=== PATIENT | female | born 1955 | race Caucasian/White ===

== ENCOUNTER 2022-08-15 14:14 | Emergency (ER) | payer OTHER, SELFPAY ==
[2022-08-15 14:24] VITALS: BP 127/72; PULSE 79; RESP 18; TEMP 36.4; O2SAT 98; BMI 24.0
--- NOTE | 2022-08-15 16:05 | ED_ITS ---
HPI - General Adult General Time Seen by Provider: 16:05 Date Seen: 08/15/22 Chief complaint: Allergic Reaction Stated complaint: Swollen tongue Time Seen by Provider: 08/15/22 14:53 Source: patient Mode of arrival: ambulatory Limitations: no limitations History of Present Illness HPI narrative: Francoise is a 67-year-old female past medical history includes cow's intolerance, dairy allergies, irritable bowel syndrome, hyperlipidemia, depression presents to emergency department with with allergic reaction. Patient states that around 1:00 p.m. this afternoon she drank a can of Coke after poured it in a paper cup. She had some corn chips as well, she noticed some tongue swelling, she denied any dairy foods this morning, her thought there was more swelling in her neck, she was able to take a Zyrtec. She did not have any difficulty with breathing, she did not have any difficulty swallowing, she has not had anything like this in the past, when she ate a corn chips it was more painful, she does have a dental kenji the needs taking care of. No associated facial swelling. She has not had any fevers. Tongue swelling is improved since she has been tumor department. She denies any recent detergents, lotions or new foods. Related Data Home Medications Medication Instructions Recorded Confirmed rosuvastatin 10 mg tablet mg 08/15/22 sertraline 50 mg tablet mg 08/15/22 Previous Rx's Medication Instructions Recorded epinephrine 0.3 mg/0.3 mL 0.3 mg (0.3 mL) IM ONCE PRN 08/15/22 injection, auto-injector anaphylaxis #1 syringe prednisone 20 mg tablet 40 mg PO DAILY 2 days #4 tabs 08/15/22 Allergies Allergy/AdvReac Type Severity Reaction Status Date / Time latex Allergy Mild Rash Verified 05/29/22 15:52 Penicillin Allergy Severe hives and Uncoded 05/29/22 15:52 constipation Sulfa drugs Allergy Intermediate hives and Uncoded 05/29/22 15:52 constipation Lactose Intolerance AdvReac Unknown constipation Uncoded 05/29/22 15:52 per past medical record Review of Systems Status of ROS: Reports: 10 or more systems reviewed and unremarkable except as noted in History and below [facility] Medical History Asthma Right shoulder pain Surgical History History of tubal ligation (1986) Family History Maternal Grandfather Alcoholism Father Colon cancer Coronary artery disease Depression Diabetes Nonmelanoma skin cancer Mother Colon cancer Depression Nonmelanoma skin cancer Family/Other Depression Family/Other Depression Social History Narrative: Does not drink alcohol Does not have regular exercise regimen- but works physical job, involving lifting 50 lb loads , 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 No submandibular adenopathy, dental carry present last left lower molar, no abscess. No stridor Neck: Supple full range of motion Lungs:No stridor or wheezing present Heart: Normal sinus rhythm S1-S2 Abdomen: Soft nontender bowel sounds present Muscle skeletal: Moving upper lower extremities with no difficulty Neuro: Alert awake and oriented x3 Skin: No rashes Const: Vital Signs, click to edit/add: Vital Signs - 24 hr 08/15/22 14:24 Temperature 97.6 F Pulse Rate [Right Pulse Oximeter] 79 Respiratory Rate 18 Blood Pressure [Ri ght Upper Arm] 127/72 Pulse Oximetry 98 Oxygen Delivery Me thod Room Air Course Course Hospital Course: 4:00 PM: AIDET performed. Vitals stable, no airway compromise at this time, no respiratory distress, will give her her IM dose of Benadryl 50 and mg Decadron. Patient in agreement. Differential diagnosis include hypersensitivity reaction anaphylaxis, cellulitis, edema, infection as well as other etiologies. Reevaluation(s) Reevaluation #1: Patients symptoms have improved. vitals are stable. plan to discharge, short course of Prednisone 40 mg over 2 days in addition to OTC Benadryl. She was also given a EpiPen in case of hypersensitivity reaction or anaphylaxis in the future. reasons to return given, she should follow up with primary care provider in the next 7-10 days. Time: 17:33 Vital Signs Vital signs: Initial Vital Signs Temperature 97.6 F 08/15/22 14:24 Temperature Source Temporal Artery Scan 08/15/22 14:24 Pulse Rate 79 08/15/22 14:24 Respiratory Rate 18 08/15/22 14:24 Blood Pressure 127/72 08/15/22 14:24 Blood Pressure Mean 90 08/15/22 14:24 Blood Pressure Position Sitting 08/15/22 14:24 Pulse Oximetry 98 08/15/22 14:24 Oxygen Delivery Method 08/15/22 14:24 Vital Signs Temperature 97.6 F 08/15/22 14:24 Pulse Rate 79 08/15/22 14:24 Respiratory Rate 18 08/15/22 14:24 Blood Pressure 127/72 08/15/22 14:24 Pulse Oximetry 98 08/15/22 14:24 Oxygen Delivery Method 08/15/22 14:24 Temperature 97.6 F 08/15/22 14:24 Pulse Rate 79 08/15/22 14:24 Respiratory Rate 18 08/15/22 14:24 Blood Pressure 127/72 08/15/22 14:24 Pulse Oximetry 98 08/15/22 14:24 Oxygen Delivery Method 08/15/22 14:24 Discharge Plan Discharge Clinical Impression: Tongue swelling Patient Disposition: Home, Self-Care Condition: Improved Instructions: Allergies (ED) Additional Instructions: To follow up with primary care provider in the next 7-10 days, she should continue with Benadryl 25-50 mg every 4-6 hours, or course prednisone 40 mg given over the next 2 days, she also receive an EpiPen to have at home, return precautions given. Prescriptions: New prednisone 20 mg tablet 40 mg PO DAILY 2 Days Qty: 4 0RF epinephrine 0.3 mg/0.3 mL auto-injector 0.3 mg IM ONCE PRN (Reason: anaphylaxis) Qty: 1 0RF No Action sertraline 50 mg tablet rosuvastatin 10 mg tablet Follow Up/Referrals: Chelle Camacho MD [Primary Care Provider] - Stand Alone Forms: [facility] Info Instructions
[2022-08-15] MEDS: diphenhydrAMINE 50 MG/ML inj IM (16:15)
[2022-08-15] MEDS: dexAMETHasone 10 MG/ML inj IM (16:15)
[2022-08-15 16:30] VITALS: BP 138/83; PULSE 78; RESP 12; O2SAT 94
[2022-08-15 17:00] VITALS: BP 121/72; PULSE 80; RESP 18; O2SAT 99
[2022-08-15 17:30] VITALS: BP 123/73; PULSE 82; RESP 18; O2SAT 98
== END 2022-08-15 17:42 | disposition home or self-care (01) ==
PROVIDERS: Emergency Provider Student in an Organized Health Care Education/Training Program; PCP Family Medicine
DX: K14.0 Glossitis (principal)
CPT/HCPCS: 96372; 99283; J1100; J1200

== ENCOUNTER 2023-01-10 10:35 | Outpatient (CLI) | payer OTHER, SELFPAY ==
[2023-01-10 10:42] VITALS: BP 124/84; PULSE 75; RESP 16; O2SAT 95
[2023-01-10] MEDS: TETRACAINE 0.5% OPHTH 1 DROP EYE-BOTH ×3 (10:52→11:41)
[2023-01-10] MEDS: BRIMONIDINE TARTRATE 0.2% OPHTH 1 DROP EYE-BOTH ×2 (10:54→11:56)
--- NOTE | 2023-01-10 12:00 | W.PM.OPTPROC ---
Procedure Note Date of procedure: 01/10/23 Will [facility] bill your pro fee for this procedure?: Yes Procedure Description: SURGEON: Zeenat Cook MD PREOPERATIVE DIAGNOSIS: Posterior capsular opacity, right and left eye POSTOPERATIVE DIAGNOSIS: Posterior capsular opacity, right and left eye PROCEDURE: YAG laser capsulotomy, both eyes ANESTHESIA: Topical. ESTIMATED BLOOD LOSS: None PATHOLOGY SPECIMEN: None COMPLICATIONS: None INDICATIONS: See consult note for details. The risks, benefits and alternatives of the procedure were explained to the patient, who elected to proceed and signed informed consent to do so. PROCEDURE: The patient was brought to the pre-holding area where the right and left eyes were identified as the operative eyes. I placed my initials above the eyes. The following was given in both eyes: The patient received 2 sets of 1 drop of 0.5% tetracaine and 1 drop of 1% tropicamide. They also received 1 drop of 0.2% brimonidine. They received 1 drop of 0.5% tetracaine immediately prior to bringing them back for the procedure. The patient was then brought to the procedure room where the right and left eyes were again identified as the operative eyes. A YAG Jaden capsulotomy lens was placed on the right eye. The laser was administered using a total number of 24 shots with an energy of 2.4 mJ per shot for a total energy of 50 mJ. The patient tolerated the procedure well. A YAG Jaden capsulotomy lens was placed on the left eye. The laser was administered using a total number of 17 shots with an energy of 2.4 mJ per shot for a total energy of to 41 mJ. The patient tolerated the procedure well. DISPOSITION: The patient was taken back to the pre-holding area and given 1 drop of 0.2% brimonidine in both eyes. They were discharged to home in stable condition. The patient was instructed to call me or go to the emergency department with any sudden change, including dramatic loss of vision, severe pain in the eye or eyebrow region, nausea, or vomiting. The patient was instructed to use the 0.2% brimonidine 1 drop 2 times a day in both eyes for 1 week. The patient will follow up in the clinic in 1-2 weeks. Surgeon: Zeenat Cook MD
== END 2023-01-10 12:00 | disposition home or self-care (01) ==
LOC: OP CLINIC 10:36
PROVIDERS: PCP Family Medicine; Visit Provider Ophthalmology
DX: H26.9 Unspecified cataract (principal)
CPT/HCPCS: 66821; A9270

== ENCOUNTER 2023-05-09 13:12 | Outpatient (CLI) | payer OTHER, SELFPAY ==
--- NOTE | 2023-05-09 13:40 | CRLHL7_ITS ---
For Patients: As a result of the Century Cures Act, medical imaging exams and procedure reports are released immediately into your electronic medical record. You may view this report before your referring provider. If you have questions, please contact your health care provider. BILATERAL SCREENING MAMMOGRAM WITH COMPUTER-AIDED DETECTION TECHNIQUE: CC and MLO views were obtained. These mammographic images have been obtained using full-field digital technique. These mammographic images were interpreted with the benefit of computer-aided detection. COMPARISON FILM: 03/02/22, 05/18/20, 04/11/18. FINDINGS: There are scattered areas of fibroglandular density IMPRESSION: There is no radiographic evidence for malignancy. ASSESSMENT: BI-RADS Category 1: Negative RECOMMENDATION: Routine screening mammogram in 1 year. A lay language report of this examination will be provided to the patient. Hi Mcdaniel M.D. Diagnostic Radiologist [email or web address] Transcribed: 5:24 p.nelson adan/Dictated by: Hi Mcdaniel MD @ 05/10/2023 9:34:00 AM (Electronically Signed)
== END 2023-05-09 13:13 | disposition home or self-care (01) ==
PROVIDERS: PCP Family Medicine; Visit Provider Family Medicine
DX: Z12.31 Encounter for screening mammogram for malignant neoplasm of breast (principal)
CPT/HCPCS: 77067

== ENCOUNTER 2023-05-11 08:13 | Outpatient (CLI) | payer OTHER, SELFPAY ==
--- NOTE | 2023-05-11 10:02 | W.ANESCHARGE ---
Anesthesia Charges Start Date/Time Anesthesia Start Date: 05/11/23 Anesthesia Start Time: 09:27 Stop Date/Time Anesthesia Stop Date: 05/11/23 Anesthesia Stop Time: 09:58
== END 2023-05-11 08:14 | disposition home or self-care (01) ==
LOC: OP CLINIC 08:13
PROVIDERS: PCP Family Medicine; Visit Provider Internal Medicine
DX: Z12.11 Encounter for screening for malignant neoplasm of colon (principal); K63.5 Polyp of colon; K57.30 Diverticulosis of large intestine without perforation or abscess without bleeding; Z80.0 Family history of malignant neoplasm of digestive organs
CPT/HCPCS: 00811; 45380; 88305; J2704

== ENCOUNTER 2023-05-20 00:35 | Emergency (ER) | payer OTHER, SELFPAY ==
[2023-05-20 00:43] VITALS: BP 132/78; PULSE 68; RESP 18; TEMP 36.8; O2SAT 99; BMI 27.5
[2023-05-20] MEDS: diphenhydrAMINE 25 MG CAPSULE PO (01:12)
--- NOTE | 2023-05-20 01:17 | ED_ITS ---
HPI - General Adult General Chief complaint: Ear/Nose/Throat Problem Stated complaint: swollen tongue Time Seen by Provider: 05/20/23 00:37 Source: patient and family Mode of arrival: ambulatory Limitations: no limitations History of Present Illness HPI narrative: 68-year-old female presents the emergency department for evaluation of tenderness in what she perceives as swelling to the right side of her tongue. S he does not have a history of angioedema, does not use Jay inhibitors. She reports that she has had soreness for the past 3 days. [place] like she had a little swelling that vaguely started around 9:00 p.m.. No fevers, sweats or chills. She tried taking a decongestant which did not improve her symptoms and her typical nasal steroid spray. Did not try taking any antihistamines. She is having no difficulty breathing, notes no shortness of breath, no lip swelling, eyelid swelling facial swelling or hives. She has some dental work done about a week ago. Has had obvious aphthous ulcers on the right side of the tongue, right cheek for the past 10 days. Unknown exposure. Appetite has been a little decreased today but she is taking fluids without difficulty. No difficulty swallowing, no sore throat. Has been drinking lots of hot tea today and she did try saltwater gargles once with no significant improvement in her symptoms. Past medical history is notable for multiple environmental and medication allergies, all reviewed. Medications reviewed as well, denies any recent changes. Socially she is a nonsmoker with no pertinent travel. Does have grandchildren but they are not exhibiting signs of illness. ROS is notable for the HEENT symptoms as above, otherwise denies generalized, skin, other HEENT, allergic, GI or skin changes. Related Data Home Medications Medication Instructions Recorded Confirmed multivitamin 1 tab PO QDAY 08/18/22 04/17/23 calcium carbonate 600 mg calcium 600 mg PO .2x/week 04/17/23 04/17/23 (1,500 mg) tablet cholecalciferol (vitamin D3) 25 25 mcg PO QDAY 04/17/23 04/17/23 mcg (1,000 unit) capsule fluticasone propionate 50 1 spray intranasal QDAY 04/17/23 04/17/23 mcg/actuation nasal spray,suspension magnesium oxide 400 mg (241.3 mg 250 mg PO .2x/week 04/17/23 04/17/23 magnesium) tablet Previous Rx's Medication Instructions Recorded epinephrine 0.3 mg/0.3 mL 0.3 mg (0.3 mL) IM ONCE #2 ea 01/18/23 injection, auto-injector (EpiPen 2-Andreas) rosuvastatin 10 mg tablet 10 mg PO DAILY #90 tabs 04/17/23 sertraline 50 mg tablet 50 mg PO QDAY #90 tabs 04/17/23 peg 3350-electrolytes 236 240 ml PO ONCE #1 bottle 04/19/23 gram-22.74 gram-6.74 gram-5.86 gram solution (Golytely) peg 3350-electrolytes 236 480 ml PO ONCE #2 btls 04/19/23 gram-22.74 gram-6.74 gram-5.86 gram solution (Golytely) Allergies Allergy/AdvReac Type Severity Reaction Status Date / Time latex Allergy Mild Rash Verified 04/17/23 13:49 Penicillins Allergy Verified 04/17/23 13:49 Sulfa (Sulfonamide Allergy Verified 04/17/23 13:49 Antibiotics) gluten AdvReac Verified 05/11/23 09:49 Lactose Intolerance AdvReac Unknown constipation Uncoded 04/17/23 13:49 per past medical record [facility] Medical History Right shoulder pain ?M25.511 - Pain in right shoulder (ICD-10) Asthma ?J45.909 - Unspecified asthma, uncomplicated (ICD-10) Surgical History History of tubal ligation (1986) ?Z98.51 - Tubal ligation status (ICD-10) Family History Maternal Grandfather Alcoholism Father Colon cancer Coronary artery disease Depression Diabetes Nonmelanoma skin cancer Mother Colon cancer Depression Nonmelanoma skin cancer Family/Other Depression Family/Other Depression Social History Narrative: Does not drink alcohol Does not have regular exercise regimen- but works physical job, involving lifting 50 lb loads , 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, 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, lives in [place] Smoking Status: Never smoker Do you use any of these nicotine containing products: None Second hand tobacco smoke exposure: No How often do you have a drink containing alcohol: never AUDIT-C Alcohol total score: 0 Non-prescribed substance use: denies use Little interest or pleasure in doing things: not at all Feeling down, depressed, or hopeless: more than half the days Exam Const: Vital Signs, click to edit/add: Vital Signs - 24 hr 05/20/23 00:43 Temperature 98.2 F Pulse Rate [Right Pulse Oximeter] 68 Respiratory Rate 18 Blood Pressure [Le ft Upper Arm] 132/78 Pulse Oximetry 99 Oxygen Delivery Me thod Room Air Documenting provider has reviewed patient's vital signs: yes Common normals: no apparent distress General appearance: cooperative, comfortable and well kempt HENMT: Common normals: normocephalic and TM's normal bilaterally Head and scalp: normocephalic Face and sinus: normal facial exam; no facial edema Tympanic membrane: TM's normal bilaterally Throat: posterior oropharynx normal, tonsils normal and uvula midline Other: Typical appearing aphthous ulcer on right mid tongue, similar lesion on right buchal mucosa and 1 on the top of the palate. There is no swelling whatsoever to the tongue. No loss of rugae. Normal pharyngeal arches, normal lips, normal buccal mucosa besides the aphthous ulcers. Eye: Common normals: conjunctivae normal General eye: normal appearance of both eyes Conjunctiva: conjunctiva(e) normal Neck & C-Spine: Common normals: no lymphadenopathy Resp: Common normals: normal respiratory effort and clear to auscultation bilaterally Effort & inspection: able to speak in complete sentences Auscultation: clear to auscultation bilaterally Cardio: Common normals: regular rate, regular rhythm, S1 normal heart sound and S2 normal heart sound Rate: regular rate Rhythm: regular rhythm Heart sounds: S1 normal and S2 normal Neuro: Speech: speech normal Psych: Appearance: well kempt Attitude: calm Skin: Common normals: no rashes or lesions noted Narrative: No hives, no swelling General skin exam: no rashes or lesions noted Course Course Hospital Course: Counseled patient on findings, discussed viral etiology about this ulcers and have a tend to last about 3 weeks. There are no clinical signs of an allergic reaction, no dehydration. Sometimes antihistamines can reduce inflammation, she does not have access to these at home, the pharmacies are now closed for the night. Will administer Benadryl 25 mg p.o. x1. Counseled on Tylenol and ibuprofen for the mild discomfort and daily nondrowsy antihistamines like loratadine. Counseled on alarm symptoms that would warrant ED presentation, lip or tongue swelling, airway difficulty, shortness of breath, throat tightness. She verbalizes understanding and agreement. Counseled that she really should have access to Benadryl because of her history of allergy shots and allergic reactions in general. We discussed episodic use of this as well. She and her verbalized understanding and agreement. Vital Signs Vital signs: Initial Vital Signs Temperature 98.2 F 05/20/23 00:43 Temperature Source Temporal Artery Scan 05/20/23 00:43 Pulse Rate 68 05/20/23 00:43 Respiratory Rate 18 05/20/23 00:43 Blood Pressure 132/78 05/20/23 00:43 Blood Pressure Mean 96 05/20/23 00:43 Blood Pressure Position Sitting 05/20/23 00:43 Pulse Oximetry 99 05/20/23 00:43 Oxygen Delivery Method Room Air 05/20/23 00:43 Vital Signs Temperature 98.2 F 05/20/23 00:43 Pulse Rate 68 05/20/23 00:43 Respiratory Rate 18 05/20/23 00:43 Blood Pressure 132/78 05/20/23 00:43 Pulse Oximetry 99 05/20/23 00:43 Oxygen Delivery Method Room Air 05/20/23 00:43 Temperature 98.2 F 05/20/23 00:43 Pulse Rate 68 05/20/23 00:43 Respiratory Rate 18 05/20/23 00:43 Blood Pressure 132/78 05/20/23 00:43 Pulse Oximetry 99 05/20/23 00:43 Oxygen Delivery Method Room Air 05/20/23 00:43 Discharge Plan Discharge Clinical Impression: Aphthous ulcer of mouth Patient Disposition: Home w/ Parent or Adult Condition: Stable Instructions: Oral Mucositis (ED) Additional Instructions: As we discussed, there are no signs of airway compromise or allergic reaction. The small ulcers in her mouth are caused by a virus, this takes about 3-4 weeks to run its course. This means that you are about care home through the illness. This will not progress to a life-threatening condition but it is often mildly sore. It is okay to use Tylenol 1000 mg every 6 hours for discomfort and or ibuprofen 600 mg every 6 hours as needed for discomfort. These are the absolute best measures for pain control. Because of your allergy history, I would recommend that you take an antihistamine like loratadine which is old [id number] is Claritin or similar medications such as Zyrtec or Tess once daily for the next 5 days. If you are noticing a feeling of tongue swelling, take Benadryl 25 mg every 6 hours as needed. As we discussed, since you are someone that has allergies, you should always have access to Benadryl, I strongly encourage you to draft roller picker some at your next visit to the store. Remember that this is your first-line treatment against allergic reactions. It is common to have a mild sore throat, mild stomach discomfort from this virus also. There are no signs of a bacterial infection. Antibiotics do not help with this. Come to the emergency department if you have difficulty breathing, swelling of the lips or signs of true allergic reaction. You may resume all typical activities. Activity Level: No Restrictions Discharge Diet: Regular Prescriptions: No Action multivitamin Tablet 1 tab PO QDAY calcium carbonate 600 mg calcium (1,500 mg) tablet 600 mg PO .2x/week magnesium oxide 400 mg (241.3 mg magnesium) tablet 250 mg PO .2x/week epinephrine [EpiPen 2-Andreas] 0.3 mg/0.3 mL auto-injector 0.3 mg IM ONCE Qty: 2 0RF Rx Instructions: as a single dose; may repeat once fluticasone propionate 50 mcg/actuation spray,suspension 1 spray intranasal QDAY Patient Comments: [NO ORIGINAL SIG] cholecalciferol (vitamin D3) 25 mcg (1,000 unit) capsule 25 mcg PO QDAY sertraline 50 mg tablet 50 mg PO QDAY Qty: 90 3RF rosuvastatin 10 mg tablet 10 mg PO DAILY Qty: 90 3RF peg 3350-electrolytes [Golytely] 236-22.74-6.74 -5.86 gram recon soln 240 ml PO ONCE Qty: 1 0RF Rx Instructions: 4pm day prior to procedure. Drink 8oz glass every 15 minutes until 1/2 of solution is gone. 6 hours prior to procedure drink 8 oz glass every 15 minutes until remaining solution gone. peg 3350-electrolytes [Golytely] 236-22.74-6.74 -5.86 gram recon soln 480 ml PO ONCE Qty: 2 0RF Rx Instructions: 4pm day prior to procedure. Drink 8oz glass every 15 minutes until 1/2 of solution is gone. 6 hours prior to procedure drink 8 oz glass every 15 minutes until remaining solution gone. Follow Up/Referrals: Bo Ojeda MD [Primary Care Provider] - Stand Alone Forms: [facility] Info Instructions
[2023-05-20 01:30] VITALS: BP 132/78; PULSE 68; RESP 18; TEMP 36.8; O2SAT 99
[2023-05-20 01:54] VITALS: BP 132/78; PULSE 68; RESP 18; TEMP 36.8
== END 2023-05-20 01:55 | disposition home or self-care (01) ==
LOC: ED 01:19
PROVIDERS: Emergency Provider Family Medicine; PCP Family Medicine
DX: K12.0 Recurrent oral aphthae (principal)
CPT/HCPCS: 99282; 99283; A9270

== ENCOUNTER 2023-11-21 18:59 | Outpatient (CLI) | payer OTHER, SELFPAY ==
--- OUTSIDE RECORDS SUMMARY | 2023-11-21 19:04 | XMS_ITS | Clinical Summary ---
Author Name Unknown Organization [facility] Address [place], [place] [address] Care Team Providers Care Claims Specialist Name Role Phone Pcp, No Primary Care Provider Unavailabl e Allergies Active Allergy Reactions Criticality Noted Date Comments Lactose Constipation 12/16/2007 Penicillins Hives 12/16/2007 Sulfa (Sulfonamide Antibiotics) Hives,Constipation 12/16/2007 Medications Medication Sig Dispensed Refills Start Date End Date Status MELATONIN 3 MG TAB 1 tablet by mouth at bedtime for sleep 0 01/07/2008 Active CALCIUM ANTACID 1,000 MG CHEWABLE TAB 1 tablet by mouth once daily 0 01/07/2008 Active cholecalciferol (VITAMIN D) 1,000 unit capsule Take 1 capsule by mouth once daily. 0 07/13/2011 Active sertraline (ZOLOFT) 100 mg tabletIndications:Dep ression with anxiety Take 1 tablet by mouth once daily. 90 tablet 3 01/11/2014 Active ibuprofen (ADVIL; MOTRIN) 200 mg tablet Take 1,200 mg by mouth 4 times daily if needed. 0 Active rosuvastatin (CRESTOR) 10 mg tablet Take 1 Tablet by mouth once daily. 0 02/27/2023 Active multivitamin capsule Take 1 Capsule by mouth once daily. 0 04/16/2023 Active Active Problems Problem Noted Date Diagnosed Date Vitamin D deficiency 03/23/2011 Chronic rhinitis 01/16/2008 Nonspecific abnormal results of thyroid function study 01/15/2008 Resolved Problems Problem Noted Date Diagnosed Date Resolved Date Nonspecific abnormal results of thyroid function study 01/16/2008 01/16/2008 Iron deficiency anemia, unspecified 01/16/2008 03/23/2011 Encounters Date Type Department Care Team Description 11/16/2023 Telephone [facility] [address] [facility] [address] Raphael Harmon MD Questions (needs records of allergy shots) 11/15/2023 11:15 AM [employer] Nurse/Clinic Staff Only [facility] [address] [place] [place] [address] Immunization/Injecti on (ALLERGY INJECTIONS ) 11/15/2023 Travel 11/01/2023 10:45 AM [employer] Nurse/Clinic Staff Only [facility] [address] [facility] [address] Immunization/Injecti on (ALLERGY INJECTIONS ) 11/01/2023 Travel 10/25/2023 10:45 AM [employer] Nurse/Clinic Staff Only [facility] [address] [facility] [address] Immunization/Injecti on (ALLERGY SHOTS) 10/25/2023 Travel 10/18/2023 10:45 AM [employer] Nurse/Clinic Staff Only [facility] [address] [facility] [place] [address] Immunization/Injecti on (ALLERGY INJECTIONS ) 10/18/2023 Travel 10/11/2023 10:45 AM [employer] Nurse/Clinic Staff Only [facility] [address] [facility] [address] Immunization/Injecti on (ALLERGY INJECTIONS ) 10/11/2023 Travel 10/02/2023 10:45 AM [employer] Nurse/Clinic Staff Only [place] [address] [address] [facility] [place] [address] Immunization/Injecti on (ALLERGY SHOT) 10/02/2023 Travel 09/27/2023 10:45 AM [employer] Nurse/Clinic Staff Only [place] [address] [address] [facility] [place] [address] Immunization/Injecti on (ALLERGY SHOT) 09/27/2023 Travel 09/20/2023 10:45 AM [employer] Nurse/Clinic Staff Only [place] [address] [address] [facility] [address] Immunization/Injecti on (ALLERGY INJECTIONS ) 09/20/2023 Travel 09/13/2023 10:45 AM CDT Nurse/Clinic Staff Only [facility] [address] [facility] [address] Immunization/Injecti on (ALLERGY INJECTIONS ) 09/13/2023 Travel 09/06/2023 10:45 AM CDT Nurse/Clinic Staff Only [facility] [address] [place] [address] [address] Immunization/Injecti on (ALLERGY INJECTIONS ) 09/06/2023 Travel 08/27/2023 9:30 AM CDT Nurse/Clinic Staff Only [facility] [address] [facility] [address] Immunization/Injecti on (ALLERGY INJECTIONS ) 08/27/2023 Travel 08/23/2023 10:45 AM CDT Nurse/Clinic Staff Only [facility] [address] [facility] [address] Immunization/Injecti on (ALLERGY INJECTIONS ) 08/23/2023 Travel from Last 3 Months Immunizations Name Administration Dates Next Due Td (Age >=7 Years) 06/06/2007 Family History Medical History Relation Name Comments Psychiatric illness Daughter 2 Crystal depressi on Cancer-colon Father Santiago Bussert Diabetes Father Santiago Bussert Heart Disease Father Santiago Bussert Hypertension Father Santiago Bussert Other Father Santiago Bussert kidney disease Psychiatric illness Father Santiago Bussert depressi on Psychiatric illness Maternal Grandfather committed suicide Diabetes Maternal Grandmother Hypertension Mother Gregoria Bussert Psychiatric illness Mother Gregoriapavel Pedrozasert depressi on, anxiety Diabetes Paternal Grandfather Diabetes Sister 2 x4, Dasha Coffey, Nubia Mendenhall, Maru Penny, Carmen Self Psychiatric illness Son 2 Thomas depressi on Relation Name Status Comments Brother Alive x1 Daughter 1 Alive x2 Daughter 2 Crystal Father Santiago Yovanysert 2006 Maternal Grandfather Maternal Grandmother Mother Gregoria Bussert Alive Paternal Grandfather Paternal Grandmother Sister 1 Alive x6 Sister 2 Son 1 Alive x1 Son 2 Thomas Social History Tobacco Use Types Packs/Day Years Used Date Smoking Tobacco: Never Smokeless Tobacco: Never Tobacco Cessation:Counseling Given: Yes Alcohol Use Standard Drinks/Week Comments Not Asked 0 (1 standard drink = 0.6 oz pur e alcohol) Social Connections Answer Date Recorded Frequency of Communication with Friends and Fami ly Not on file 04/16/2023 Sex and Gender Information Value Date Recorded Sex Assigned at Not on file Gender Identity Not on file Sexual Orientation Not on file Obstetrics History Para Term AB IAB SAB Ectopic Multiple Livin g Live Births 3 3 3 Date Outcome GA Total Labor Labor/2nd/3rd Weight Sex Delivery Anes PTL Mila A1 A5 Name Cl in Para Para Para Last Filed Vital Signs Vital Sign Reading Time Taken Comments Blood Pressure 114/83 04/16/2023 2:17 PM CDT Pulse 70 04/16/2023 2:17 PM CDT Temperature 36.9 ??C (98.4 ??F) 08/24/2013 9:00 AM CD T Respiratory Rate 16 08/24/2013 9:00 AM CDT Oxygen Saturation 97% 04/16/2023 2:17 PM CDT Inhaled Oxygen Concentration - - Weight 74.4 kg (164 lb) 04/16/2023 2:17 PM CDT Height 163.2 cm (5' 4.25) 08/01/2011 8:26 AM CD T Body Mass Index - - Plan of Treatment Upcoming Encounters Date Type Department Care Team (Late st Contact Info) Description 11/29/2023 10:45 AM [employer] Nurse/Clinic Staff Only [facility] [address] [place], [place] [id number] Health Maintenance Due Date Last Done Comments Tdap 01/19/1968 Depression screening for age 12+ 1969 BMI (ht and wt on same day) for age 18+ 1975 Hepatitis C screening for ag e 18-79 1975 Zoster (shingles) series for age 50+ (1 of 2) 2007 Mammogram for age 45-75 08/01/2012 08/01/2011 Lipids for age 45-75 03/13/2016 03/13/2011 Tetanus booster 06/06/2017 06/06/2007 Colonoscopy through age 75 12/16/2017 12/16/2007, DEXA/DXA scan for age 65+ 2022 Medicare Wellness for age 65+ 2022 Pneumococcal series for age 65+ (1 of 1 - PCV) 2022 Influenza for age 65+ 07/13/2023 COVID-19 vaccine series Completed 08/21/20, 05/19/2022, 09/18/2021, Additional history exists Care Teams Claims Specialist Relationship Specialty Start Date End Date Pcp, No . PCP - General 04/16/23
--- OUTSIDE RECORDS SUMMARY | 2023-11-21 19:04 | XMS_ITS | Continuity of Care Document ---
Author Name Unknown Organization [facility] Address [address] [place] [address] Phone Care Team Providers Care Hog Ribber Name Role Phone Grace Cardona MD Unavailable Unavailable Allergies, Adverse Reactions, Alerts Substance Reaction Status Criticality sulfanilamide Active No Information Penicillins Active No Information Procedures Procedure Date Office/Outpatient Visit,[facility] 2013 Advance Directives Directive Yes / No Effective Date File Name No Information Encounters Encounter Description Practice Location Reason(s) For Visit Diagnoses Date Provider Providers Copied on Encounter [facility], [address], [place], [place], [id number], [place] tel:[phone] [facility] No Information 6 Mehbod Amir. [facility] [place], [address] [place] [address] [address], [place], [id number] , [place]. tel:[phone] Office/Outpat ient Visit,[facility] [place], [address] [place], [place] [address], [place], [address], [place] tel:[phone] [facility] Feb- 4 Mehbod Amir. [facility] [place], [address] [place] [address] [address], [place], [place], [id number] , [place]. tel:[phone] Referring Provider: Percy Kate, [facility] [address] [place] [address], [address]. tel:[phone] Family History Family Member Type Diagnosis Age At Onset Problem (finding) Problem (finding) Family history of Yes Problem (finding) Payers Payer name Insurance type Covered green party ID Authoriza tion(s) No Information Social History Type Description Quantity Date Captured Comments Sex Female Smoking Status No Information Chief Complaint And Reason For Visit No Information Reason For Referral Reason For Referral No Information History Of Present Illness Encounter Date Complaint History Of Prese nt Illness No Information Functional Status Date Functional Assessmen t No Information Instructions Date Instruction Additional Infor mation No Information Assessments Type Assessment Date No Information Patient Care Teams Name Effective Dates (start - stop) Status Members No Information
--- NOTE | 2023-11-27 14:48 | W.PM.SLEEP ---
Sleep Study Details Details Interpreting Provider: Yvette Date of Sleep Study: 11/21/23 Sleep Study Details: STUDY TYPE:? Home unattended ? BMI:? Not recorded ORDERING PROVIDER:Haider Lopez INDICATION:? Concerns about sleep apnea ? SLEEP SUMMARY:? Monitor time 438.3 minutes RESPIRATORY SUMMARY:? AHI 43, low oxygen 83 there were some central apneas with an index of 3.1 in the supine position 1.3 in the right lateral position. 7.6% of study oxygen less than 90% Snoring 0.3% PERIODIC LIMB MOVEMENTS OF SLEEP:? Not recorded during home study CARDIAC:? Range 49-85, mean 60 IMPRESSION:? Severe obstructive sleep apnea with significant desaturations and a few central apneas were noted RECOMMENDATION: In-lab titration is recommended. If patient prefers an auto set trial could be performed but close monitoring is recommended then.
== END 2023-11-21 19:00 | disposition home or self-care (01) ==
LOC: SLEEP 19:02
PROVIDERS: PCP Family Medicine; Visit Provider Family Medicine
DX: G47.33 Obstructive sleep apnea (adult) (pediatric) (principal)
CPT/HCPCS: 95806

== ENCOUNTER 2024-03-12 18:32 | Emergency (ER) | payer OTHER, SELFPAY ==
[2024-03-12 18:38] VITALS: BP 134/79; PULSE 74; RESP 16; TEMP 36.6; O2SAT 95; BMI 28.2
--- NOTE | 2024-03-12 19:04 | XR_ITS ---
Patient: DIAMANTE HUERTA Facility:?[facility] Patient ID:?[id number] Site Patient ID:?[id number] Site :?1955 Study:?XRay-Shoulder Left 3 VIEWS-03/12/2024 7:21:18 PM Ordering Physician:EMMIE Final Report: Indication: Follow-up. Technique: Left shoulder three views. Comparison: None. Findings: There is widening of the coracoclavicular distance. No visualized fracture. Degenerative changes of the acromioclavicular joint with apparent lateral downsloping of the acromion. No evidence of glenohumeral dislocation. No additional osseous abnormality. Soft tissues as imaged are unremarkable. Impression: Widening of the coracoclavicular distance may represent acute acromioclavicular joint separation in the appropriate clinical setting. No visualized fracture. Dictated by Shiv Ray MD @ 03/12/2024 7:31:23 PM Signed by:?Shiv Ray MD @03/12/2024 7:31:23 PM (Electronic Signature)
--- NOTE | 2024-03-12 19:08 | CT_ITS ---
Patient: DIAMANTE HUERTA Facility:?[facility] Patient ID:?[id number] Site Patient ID:?[id number] Site :?1955 Study:?CT-Head WITHOUT-03/12/2024 7:28:24 PM Ordering Physician:EMMIE Final Report: INDICATIONS: Fall. TECHNIQUE: CT head without contrast. COMPARISON: None FINDINGS: There is no mass effect or midline shift. No hydrocephalus. No CT evidence of acute hemorrhage or infarction. No abnormal extra-axial fluid collection. Bone windows show no acute or suspicious osseous abnormality. Paranasal sinuses and orbits as imaged are unremarkable. IMPRESSION: No acute intracranial abnormality. Dictated by Shiv Ray MD @ 03/12/2024 7:35:44 PM Please note that all CT scans at this facility use dose modulation, iterative reconstruction, and/or weight-based dosing when appropriate to reduce radiation dose to as low as reasonably achievable. Dictated by: Shiv Ray MD @ 03/12/2024 19:35:51 Signed by:?Shiv Ray MD @03/12/2024 7:35:51 PM (Electronic Signature)
--- NOTE | 2024-03-12 19:10 | CT_ITS ---
Patient: DIAMANTE HUERTA Facility:?[facility] Patient ID:?[id number] Site Patient ID:?[id number] Site :?1955 Study:?CT-Spine Cervical WITHOUT-03/12/2024 7:29:01 PM Ordering Physician:EMMIE Final Report: INDICATIONS: Fall. TECHNIQUE: CT cervical spine without contrast. COMPARISON: None. FINDINGS: No acute fracture, malalignment or significant bony central canal compromise. Mild to moderate multilevel degenerative changes. No additional osseous abnormality. Paraspinal soft tissues elsewhere as imaged and visualized lung apices are unremarkable. IMPRESSION: No acute cervical spine fracture. Dictated by Shiv Ray MD @ 03/12/2024 7:40:13 PM Please note that all CT scans at this facility use dose modulation, iterative reconstruction, and/or weight-based dosing when appropriate to reduce radiation dose to as low as reasonably achievable. Dictated by: Shiv Ray MD @ 03/12/2024 19:40:29 Signed by:?Shiv Ray MD @03/12/2024 7:40:29 PM (Electronic Signature)
--- NOTE | 2024-03-12 19:13 | ED.GENADULT ---
HPI - General Adult General Chief complaint: Shoulder Injury/Pain Stated complaint: Fell, injured L arm/back Time Seen by Provider: 03/12/24 19:07 History of Present Illness HPI narrative: Patient is a 69-year-old female presenting for left shoulder pain. She states she was working in her garden when she tripped on a bucket falling backwards landing on her left shoulder. She states she did hit her head but relatively soft please he states. Is not on any blood thinners. Denies any other injuries. Denies loss of consciousness. Denies numbness of her upper extremities weakness, headache, vision changes.. States she can not move her left shoulder secondary to pain. Related Data Home Medications Medication Instructions Recorded Confirmed multivitamin 1 tab PO QDAY 08/18/22 01/16/24 calcium carbonate 600 mg PO .2x/week 04/17/23 01/16/24 cholecalciferol (vitamin D3) 25 25 mcg PO QDAY 04/17/23 01/16/24 mcg (1,000 unit) capsule fluticasone propionate 50 1 spray intranasal QDAY 04/17/23 01/16/24 mcg/actuation nasal spray,suspension magnesium oxide 400 mg (241.3 mg 250 mg PO .2x/week 04/17/23 01/16/24 magnesium) tablet Previous Rx's Medication Instructions Recorded epinephrine 0.3 mg/0.3 mL 0.3 mg (0.3 mL) IM ONCE #2 ea 01/18/23 injection, auto-injector (EpiPen 2-Andreas) rosuvastatin 10 mg tablet 10 mg PO DAILY #90 tabs 04/17/23 sertraline 50 mg tablet 50 mg PO QDAY #90 tabs 04/17/23 rosuvastatin 10 mg tablet 10 mg PO QDAY #14 tabs 01/10/24 Allergies Allergy/AdvReac Type Severity Reaction Status Date / Time latex Allergy Mild Rash Verified 01/16/24 10:39 Penicillins Allergy Verified 01/16/24 10:39 Sulfa (Sulfonamide Allergy Verified 01/16/24 10:39 Antibiotics) gluten AdvReac Verified 01/16/24 10:39 Lactose Intolerance AdvReac Unknown constipation Uncoded 01/16/24 10:39 per past medical record Review of Systems Narrative: Pertinent systems reviewed and were negative unless stated in HPI PFSH PFSH Medical History Right shoulder pain ?M25.511 - Pain in right shoulder (ICD-10) Asthma ?J45.909 - Unspecified asthma, uncomplicated (ICD-10) Surgical History History of tubal ligation (1986) ?Z98.51 - Tubal ligation status (ICD-10) Family History Maternal Grandfather Alcoholism Father Colon cancer Coronary artery disease Depression Diabetes Nonmelanoma skin cancer Mother Colon cancer Depression Nonmelanoma skin cancer Family/Other Depression Family/Other Depression Social History Narrative: Does not drink alcohol Does not have regular exercise regimen- but works physical job, involving lifting 50 lb loads , 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, 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, lives in [place] Smoking Status: Never smoker Do you use any of these nicotine containing products: None Second hand tobacco smoke exposure: No How often do you have a drink containing alcohol: never How often do you have six or more drinks on one occasion: Never AUDIT-C Alcohol total score: 0 Non-prescribed substance use: denies use Little interest or pleasure in doing things: not at all Feeling down, depressed, or hopeless: more than half the days service: No Exam Narrative: Exam Narrative: Const: Well-nourished, Well-developed, in mild distress Eyes: PERRL, no conjunctival injection, and symmetrical lids HENT: Atraumatic external nose and ears. Moist mucous membranes. Neck: Symmetric, trachea midline, No thyromegaly. CVS: Radial Pulses +2 bilaterally GI: Nontender/Nondistended, No rebound or guarding. MSK:Extremities w/o deformity, tenderness to anterior left shoulder. Decreased active range of motion secondary to pain of left shoulder. Decreased passive range of motion but I am able to get her up to 50% flexion before she began developing pain. No cervical midline tenderness Skin: Warm, Dry. No rashes or lesions. Neuro: Normal Muscle tone, No focal neurological deficits. Psych: Awake, Alert, & Oriented x3. Appropriate mood and affect. Const: Vital Signs, click to edit/add: Vital Signs - 24 hr 03/12/24 18:38 Temperature 97.9 F Pulse Rate [Pulse Oximeter] 74 Respiratory Rate 16 Blood Pressure [Ri ght Upper Arm] 134/79 Pulse Oximetry 95 Oxygen Delivery Me thod Room Air Course Vital Signs Vital signs: Initial Vital Signs Temperature 97.9 F 03/12/24 18:38 Temperature Source Temporal Artery Scan 03/12/24 18:38 Pulse Rate 74 03/12/24 18:38 Pulse Rhythm Regular 03/12/24 18:38 Respiratory Rate 16 03/12/24 18:38 Blood Pressure 134/79 03/12/24 18:38 Blood Pressure Mean 97 03/12/24 18:38 Blood Pressure Position Sitting 03/12/24 18:38 Pulse Oximetry 95 03/12/24 18:38 Oxygen Delivery Method Room Air 03/12/24 18:38 Vital Signs Temperature 97.9 F 03/12/24 18:38 Pulse Rate 74 03/12/24 18:38 Respiratory Rate 16 03/12/24 18:38 Blood Pressure 134/79 03/12/24 18:38 Pulse Oximetry 95 03/12/24 18:38 Oxygen Delivery Method Room Air 03/12/24 18:38 Temperature 97.9 F 03/12/24 18:38 Pulse Rate 74 03/12/24 18:38 Respiratory Rate 16 03/12/24 18:38 Blood Pressure 134/79 03/12/24 18:38 Pulse Oximetry 95 03/12/24 18:38 Oxygen Delivery Method Room Air 03/12/24 18:38 Medical Decision Making MDM Narrative Medical decision making narrative: Patient is a 69-year-old female presenting for left shoulder pain. She has tenderness to the AC joint on exam. We will x-ray the left shoulder. She is neurovascular intact. Since she fell and hit her head were also scan her head and cervical spine. Not having any headache or cervical spine pain. CT is reviewed by myself and the radiologist showed no concerning abnormalities. X-ray of the shoulder shows what appears like a AC joint separation. This is consistent with her symptoms. Will place the patient in a sling and informed her to follow up with Orthopedics within the week. She is agreeable to this plan. Imaging Data Left shoulder x-ray: Attestation: I have reviewed the pertinent imaging results. Radiologist's impression: Widening of the coracoclavicular distance may represent acute acromioclavicular joint separation in the appropriate clinical setting. No visualized fracture. Dictated by Shiv Ray MD @ 03/12/2024 7:31:[address] scan head: Attestation: I have reviewed the pertinent imaging results. Radiologist's impression: No acute intracranial abnormality. Dictated by Shiv Ray MD @ 03/12/2024 7:35:44 PM Please note that all CT scans at this facility use dose modulation, iterative reconstruction, and/or weight-based dosing when appropriate to reduce radiation dose to as low as reasonably achievable. Dictated by: Shiv Ray MD @ 03/12/2024 19:35:51 CT scan cervical spine: Attestation: I have reviewed the pertinent imaging results. Radiologist's impression: No acute cervical spine fracture. Dictated by Shiv Ray MD @ 03/12/2024 7:40:13 PM Please note that all CT scans at this facility use dose modulation, iterative reconstruction, and/or weight-based dosing when appropriate to reduce radiation dose to as low as reasonably achievable. Dictated by: Shiv Ray MD @ 03/12/2024 19:40:29 Discharge Plan Discharge Clinical Impression: Acromioclavicular joint separation Qualifiers: Encounter type: initial encounter Laterality: left Qualified Code(s): S43.102A - Unspecified dislocation of left acromioclavicular joint, initial encounter Patient Disposition: Home, Self-Care Condition: Stable Instructions: Acromioclavicular Separation (ED) Additional Instructions: Where this sling at all times. Although you can take it off while your showering but be careful with that shoulder. Follow-up with your preferred orthopedic provider location within the next week. Take Tylenol and ibuprofen for pain. You can also ice the shoulder 3 times a day for 20 minutes as needed for pain. Return for new or worsening symptoms Prescriptions: No Action multivitamin Tablet 1 tab PO QDAY calcium carbonate 600 mg calcium (1,500 mg) tablet 600 mg PO .2x/week magnesium oxide 400 mg (241.3 mg magnesium) tablet 250 mg PO .2x/week epinephrine [EpiPen 2-Andreas] 0.3 mg/0.3 mL auto-injector 0.3 mg IM ONCE Qty: 2 0RF Rx Instructions: as a single dose; may repeat once fluticasone propionate 50 mcg/actuation spray,suspension 1 spray intranasal QDAY Patient Comments: [NO ORIGINAL SIG] cholecalciferol (vitamin D3) 25 mcg (1,000 unit) capsule 25 mcg PO QDAY sertraline 50 mg tablet 50 mg PO QDAY Qty: 90 3RF rosuvastatin 10 mg tablet 10 mg PO DAILY Qty: 90 3RF rosuvastatin 10 mg tablet 10 mg PO QDAY Qty: 14 0RF Follow Up/Referrals: Bo Ojeda MD [Primary Care Provider] - Stand Alone Forms: MyHealth Info Instructions
[2024-03-12 20:57] VITALS: BP 125/81; PULSE 85; RESP 16; TEMP 36.6; O2SAT 95
[2024-03-12 20:58] VITALS: BP 125/81; PULSE 85; RESP 16; TEMP 36.6
== END 2024-03-12 20:58 | disposition home or self-care (01) ==
PROVIDERS: Emergency Provider Student in an Organized Health Care Education/Training Program; PCP Family Medicine
DX: S43.102A Unspecified dislocation of left acromioclavicular joint, initial encounter (principal); W01.0XXA Fall on same level from slipping, tripping and stumbling without subsequent striking against object, initial encounter
CPT/HCPCS: 70450; 72125; 73030; 99282; 99283; 99284

== ENCOUNTER 2024-06-10 10:57 | Outpatient (CLI) | payer OTHER, SELFPAY ==
--- OUTSIDE RECORDS SUMMARY | 2024-06-10 11:01 | XMS_ITS | Continuity of Care Document ---
Author Organization [facility] Address [address] [place] [address] Phone Care Team Providers Care Ball Point Splitter Name Role Phone Dulce KRISHNAMURTHY, Grace Unavailable Unavailable Allergies, Adverse Reactions, Alerts Substance Reaction Status Criticality sulfanilamide Active No Information Penicillins Active No Information Procedures Procedure Date Office/Outpatient Visit,[facility] 2013 Advance Directives Directive Yes / No Effective Date File Name No Information Encounters Encounter Description Practice Location Reason(s) For Visit Diagnoses Date Provider Providers Copied on Encounter [facility], [address], [place], [place], [id number], [place] tel:[phone] [phone] [facility] No Information 6 Mehbod Amir. [facility], [address] [place] [address] [address], [place], [id number] , [place]. tel:[phone] Office/Outpat ient Visit,[facility] Z [facility], [address] [place], [place] [address], [place], [address], [place] tel:[phone] [facility] 4 Mehbod Amir. [facility], [address], [place], [place], [id number] , [place]. tel:[phone] Referring Provider: Percy Kate, [facility] [address] [place] [address], [address]. tel:[phone] Family History Family Member Type Diagnosis Age At Onset Problem (finding) Problem (finding) Family history of Yes Problem (finding) Payers Payer name Insurance type Covered constitution party ID Authoriza tion(s) No Information Social [...]
== END 2024-06-10 10:58 | disposition home or self-care (01) ==
PROVIDERS: PCP Nurse Practitioner Family; Visit Provider Nurse Practitioner Family
DX: Z00.00 Encounter for general adult medical examination without abnormal findings (principal); E78.5 Hyperlipidemia, unspecified; Z13.0 Encounter for screening for diseases of the blood and blood-forming organs and certain disorders involving the immune mechanism; Z13.228 Encounter for screening for other metabolic disorders
CPT/HCPCS: 80053; 80061; 85025

== ENCOUNTER 2024-08-07 13:34 | Outpatient (CLI) | payer OTHER, SELFPAY ==
--- OUTSIDE RECORDS SUMMARY | 2024-08-07 13:37 | XMS_ITS | Continuity of Care Document ---
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 Making Machine Supervisor Name Role Phone Dulce KRISHNAMURTHY, Grace Unavailable Unavailable Allergies, Adverse Reactions, Alerts Substance Reaction Status Criticality sulfanilamide Active No Information Penicillins Active No Information Procedures Procedure Date Office/Outpatient Visit,[facility] 2013 Advance Directives Directive Yes / No Effective Date File Name No Information Encounters Encounter Description Practice Location Reason(s) For Visit Diagnoses Date Provider Providers Copied on Encounter [facility], [address], [place], [place], [id number], [place] tel:[phone] [facility] No Information 6 Mehbod Amir. [facility], [address] [place] [address] [address], [place], [id number] , [place]. tel:[phone] Office/Outpat ient Visit,[facility] Z [facility], [address] [place], [place] [address], [place], [address], [place] tel:[phone] [facility] 4 Mehbod Amir. [facility], [address], [place], [place], [id number] , [place]. tel:[phone] Referring Provider: Percy Kate, [facility] [address] [place] [address], [address]. tel:[phone] Family History Family Member Type Diagnosis Age At Onset Problem (finding) Problem (finding) Family history of Yes Problem (finding) Payers Payer name Insurance type Covered democrat ID Authoriza tion(s) No Information Social History [...]
--- OUTSIDE RECORDS SUMMARY | 2024-08-07 13:37 | XMS_ITS | Clinical Summary ---
Author Organization [facility] Address [place], [place] [address] Care Team Providers Care Forest Economics Professor Name Role Phone Pcp, No Primary Care [...] 0 07/13/2011 Active sertraline (ZOLOFT) 100 mg tabletIndications :Depression with anxiety Take 1 tablet by mouth once daily. 90 tablet 3 01/11/2014 Active ibuprofen (ADVIL; MOTRIN) 200 mg tablet Take 1,200 mg by mouth 4 times daily if needed. Active rosuvastatin (CRESTOR) 10 mg tablet Take 1 Tablet by mouth once daily. 02/27/2023 Active multivitamin capsule Take 1 Capsule by mouth once daily. 0 04/16/2023 Active Magnesium 30 mg tablet Take by mouth. Active EPINEPHrine (EPIPEN) 0.3 mg/0.3 mL auto-injector Inject 0.3 mg intramuscular each time if needed for Allergic Reaction. 02/02/2023 Active EPINEPHrine (EpiPen) 0.3 mg/0.3 mL auto-injectorIndi cations:Allergic rhinitis, unspecified seasonality, unspecified trigger Inject 0.3 mg (1 Pen) intramuscular each time if needed for Allergic Reaction. 2 Each 3 01/21/2024 Active fluticasone (50 mcg per actuation) nasal solution (FLONASE)Indicati ons:Allergic rhinitis, unspecified seasonality, unspecified trigger Inhale 1 Evans in both nostrils once daily if needed for Rhinitis. 16 g 5 07/24/2024 Active fluticasone (50 mcg per actuation) nasal solution (FLONASE) Inhale 1 Evans to both nostrils once daily if needed for Rhinitis. 07/25/2023 Discontinue d(Reorder (E-cancel not sent)) Active Problems Problem Noted Date Diagnosed Date Vitamin D deficiency 03/23/2011 Chronic rhinitis 01/16/2008 Nonspecific abnormal results of thyroid function study 01/15/2008 Resolved Problems Problem Noted Date Diagnosed Date Resolved Date Nonspecific abnormal results of thyroid function study 01/16/2008 01/16/2008 Iron deficiency anemia, unspecified 01/16/2008 03/23/2011 Encounters Date Type Department Care Team Description 07/31/2024 10:45 AM CDT Nurse/Clinic Staff Only [facility] [address] [place] [address] Immunization/Inject ion (ALLERGY INJECTION ) 07/31/2024 Travel 07/21/2024 Refill [facility] [address] [place] [address] Raphael Harmon MD Refill Request (Fluticasone) 07/17/2024 10:45 AM CDT Nurse/Clinic Staff Only [facility] [address] [place] [place] [address] Immunization/Inject ion (ALLERGY INJECTION ) 07/17/2024 Travel 07/08/2024 Orders Only [facility] [address] [place] [address] Raphael Harmon MD Refill Request (New Serum allergy mix) 07/03/2024 10:45 AM CDT Nurse/Clinic Staff Only [facility] [address] [place] [address] Immunization/Inject ion (ALLERGY INJECTIONS ) 07/03/2024 Telephone [facility] [address] [place] [address] Raphael Harmon MD Refill Request (ALLERGY SERUM ORDERS ) 07/03/2024 Travel 06/19/2024 10:45 AM CDT Nurse/Clinic Staff Only [facility] [address] [facility] [address] Immunization/Inject ion (ALLERGY INJECTIONS ) 06/19/2024 Travel 06/05/2024 10:45 AM CDT Nurse/Clinic Staff Only [facility] [address] [facility] [address] Immunization/Inject ion (ALLERGY INJECTIONS ) 06/05/2024 Travel 05/22/2024 10:45 AM CDT Nurse/Clinic Staff Only [facility] [address] [facility] [address] Immunization/Inject ion (ALLERGY INJECTIONS ) 05/22/2024 Travel 05/08/2024 10:45 AM CDT Nurse/Clinic Staff Only [facility] [address] [facility] [address] Immunization/Inject ion (ALLERGY INJECTIONS ) 05/08/2024 Travel from Last 3 Months Immunizations Name [...] Hypertension Mother Gregoria Bussert Psychiatric illness Mother Gregoria Pedrozasert depressi on, anxiety Diabetes Paternal Grandfather Diabetes Sister 2 x4, Dasha Coffey, Nubia Mendenhall, Maru Penny, Carmen Self Psychiatric illness Son 2 Thomas depressi on Relation Name Status Comments Brother Alive x1 Daughter 1 Alive x2 Daughter 2 Crystal Father Santiago Bussert 2006 Maternal Grandfather Maternal Grandmother Mother Gregoria Bussert Alive Paternal Grandfather Paternal Grandmother Sister 1 Alive x6 Sister 2 Son 1 Alive x1 Son 2 Thomas Social History Tobacco Use Types Packs/Day Years Used Date Smoking Tobacco: Never Smokeless Tobacco: Never Tobacco Cessation:Counseling Given: Yes Alcohol Use Standard Drinks/Week Comments Not Currently 0 (1 standard drink = 0.6 oz [...] Outcome GA Total Labor Labor/2nd/3rd Weight Sex Type Anes PTL Mila A1 A5 Name Clin Para Para Para Last Filed Vital Signs Vital Sign Reading Time Taken Comments Blood Pressure 117/77 01/21/2024 9:42 AM CDT tow er Pulse 63 01/21/2024 9:42 AM CDT Temperature 36.7 ??C (98.1 ??F) 12/03/2023 7:44 AM CS T Respiratory Rate 16 08/24/2013 9:00 AM CDT Oxygen Saturation 98% 01/21/2024 9:42 AM CDT Inhaled Oxygen Concentration - - Weight 76.7 kg (169 lb) 01/21/2024 9:42 AM CDT Height 161.3 cm (5' 3.5) 12/03/2023 7:44 AM HOSPICE NURSE Body Mass Index 29.47 12/03/2023 7:44 AM HOSPICE NURSE Plan of Treatment Upcoming Encounters Date Type Department Care Team (Late st Contact Info) Description 08/14/2024 10:45 AM CDT Nurse/Clinic Staff Only [place] [address] [facility] [address] 08/28/2024 10:45 AM CDT Nurse/Clinic Staff Only [place] [address] [place] [address] 09/11/2024 10:45 AM CDT Nurse/Clinic Staff Only [place] [address] [place] [address] 09/25/2024 10:45 AM HOSPICE NURSE Nurse/Clinic Staff Only [address] [address] 10/13/2024 10:45 AM HOSPICE NURSE Nurse/Clinic Staff Only [address] [address] Health Maintenance Due Date Last Done Comments Tdap 01/19/1968 Depression screening for age 12+ 1969 Hepatitis C screening for ag e 18-79 1975 Zoster (shingles) series for age 50+ (1 of 2) 2007 Mammogram for age 45-75 08/01/2012 08/01/2011 Lipids for age 45-75 03/13/2016 03/13/2011 Tetanus booster 06/06/2017 06/06/2007 Colonoscopy through age 75 12/16/2017 12/16/2007, DEXA/DXA scan for age 65+ 2022 Medicare Wellness for age 65+ 2022 Pneumococcal series for age 65+ (1 of 1 - PCV) 2022 COVID-19 vaccine series (2023- season) 2024 08/21/2023, 05/19/2022, 09/18/2021, Additional history exists Influenza for age 65+ 07/13/2024 BMI (ht and wt on same day) for age 18+ 12/03/2024 12/03/2023 Procedures Procedure Name Priority Date/Time Associated Diagnosis Comments LIPID PANEL W REFLEX MEASURED LDL Routine 03/13/2011 8:41 AM CDT Screening SCAN-COLONOSCOPY 12/16/2007 12:0 0 AM HOSPICE NURSE from Last 3 Months or Most Recently Relevant to Health Maintenance Results * (ABNORMAL) LIPID PANEL W REFLEX MEASURED LDL (03/13/2011 8:41 AM CDT) CHOLESTEROL,TOTAL 214(H) 110 - 199 mg/dL [facility] TRIGLYCERIDES 219(H) <150 mg/dL [facility] HDL CHOLESTEROL 54 >40 mg/dL [facility] CHOL/HDL RATIO 3.96 <4.51 [facility] LDL CHOLESTEROL 116 <131 mg/dL [facility] PATIENT STATUS Fasting [facility] Blood specimen (specimen) BLOOD SPECIMEN / Unknown 03/13/2011 8:41 AM CDT 03/13/2011 8:21 AM CDT Khris Whiteside DO CHEMISTRY CHLOE [facility] [address] [facility] [place] [address] * SCAN-COLONOSCOPY (12/16/2007 12:00 AM HOSPICE NURSE) Scanner OTHER from Last 3 Months or Most Recently Relevant to Health Maintenance Care Teams Forest Economics Professor Relationship Specialty Start Date End Date Pcp, No . PCP - General 04/16/23
--- NOTE | 2024-08-07 14:00 | CRLHL7_ITS ---
For Patients: As a result of the Century Cures Act, medical imaging exams and procedure reports are released immediately into your electronic medical record. You may view this report before your referring provider. If you have questions, please contact your health care provider. BILATERAL SCREENING MAMMOGRAM WITH COMPUTER-AIDED DETECTION AND TOMOSYNTHESIS TECHNIQUE: CC and MLO views were obtained. These mammographic images have been obtained using full-field digital technique. These mammographic images were interpreted with the benefit of computer-aided detection. Breast Tomosynthesis was used in this interpretation. COMPARISON FILM: 05/09/23, 03/02/22, 05/18/20. FINDINGS: There are scattered areas of fibroglandular density. IMPRESSION: There is no radiographic evidence for malignancy. ASSESSMENT: BI-RADS Category 1: Negative RECOMMENDATION: Routine screening mammogram in 1 year. A lay language report of this examination will be provided to the patient. Hi Mcdaniel M.D. Diagnostic Radiologist [email or web address] SP/Dictated by: Hi Mcdaniel MD @ 08/15/2024 10:05:00 AM (Electronically Signed)
== END 2024-08-07 13:35 | disposition home or self-care (01) ==
LOC: MAMMO 13:35
PROVIDERS: PCP Nurse Practitioner Family; Visit Provider Nurse Practitioner Family
DX: Z12.31 Encounter for screening mammogram for malignant neoplasm of breast (principal)
CPT/HCPCS: 77063; 77067

== ENCOUNTER 2024-08-17 15:21 | Emergency (ER) | payer OTHER, SELFPAY ==
--- NOTE | 2024-08-17 15:28 | ED.GENADULT ---
HPI - General Adult General Date Seen: 08/17/24 Chief complaint: Animal Bite Stated complaint: Bee sting; lips swelling Time Seen by Provider: 08/17/24 15:28 History of Present Illness HPI narrative: This is a 69-year-old female accompanied to the ER today by her with concern for lower lip swelling after a bee sting. She has a history of seasonal allergies with 1 previous episode of anaphylaxis of years ago to seasonal allergies. She is currently doing allergy shots for that. She was having a bottle of beer this afternoon. When she went to take a drink of her beer a bee that was in the beer bottle stung her on the left side of her lower lip. The sting occurred just at the border where the skin turns to the mucosal surface on the inner surface of the left lower lip. Sting occurred about an hour prior to arrival. She took 4 Benadryl tablets at home and some ibuprofen because of lip swelling and pain. She feels like her lip is getting more swollen as the minutes of gone by. No other symptoms. No hives. No upper lip swelling. No swelling of her cheek or tongue. No facial swelling. notes she has a normal voice. She has No trouble breathing. No abdominal pain. No nausea or vomiting. No lightheadedness. She has no history of coronary artery disease or hypertension. No history of asthma. Related Data Home Medications ?Medication ?Instructions ?Recorded ?Confirmed multivitamin 1 tab PO QDAY 08/18/22 06/10/24 calcium carbonate 600 mg PO .2x/week 04/17/23 06/10/24 cholecalciferol (vitamin D3) 25 25 mcg PO QDAY 04/17/23 06/10/24 mcg (1,000 unit) capsule fluticasone propionate 50 1 spray intranasal QDAY 04/17/23 06/10/24 mcg/actuation nasal spray,suspension magnesium oxide 400 mg (241.3 mg 250 mg PO .2x/week 04/17/23 06/10/24 magnesium) tablet Previous Rx's ?Medication ?Instructions ?Recorded epinephrine 0.3 mg/0.3 mL 0.3 mg (0.3 mL) IM ONCE #2 ea 01/18/23 injection, auto-injector (EpiPen 2-Andreas) rosuvastatin 10 mg tablet 10 mg PO QDAY #90 tabs 08/06/24 sertraline 50 mg tablet 50 mg PO DAILY #90 tabs 08/06/24 Allergies Allergy/AdvReac Type Severity Reaction Status Date / Time latex Allergy Mild Rash Verified 06/10/24 10:22 Penicillins Allergy Verified 06/10/24 10:22 Sulfa (Sulfonamide Allergy Verified 06/10/24 10:22 Antibiotics) gluten AdvReac Verified 06/10/24 10:22 Lactose Intolerance AdvReac Unknown constipation Uncoded 06/10/24 10:22 per past medical record PFSH PFS Medical History (Updated 08/17/24 @ 16:45 by Saúl Amos MD) Asthma ?J45.909 - Unspecified asthma, uncomplicated (ICD-10) Surgical History History of tubal ligation (1986) ?Z98.51 - Tubal ligation status (ICD-10) Family History (Updated 06/10/24 @ 10:46 by Shari Lawson, COLLECTION SYSTEMS MODELER, SPECIAL EQUIPMENT TECHNICIAN) Maternal Grandfather Alcoholism Father Colon cancer Coronary artery disease Depression Diabetes Nonmelanoma skin cancer Mother Colon cancer Depression Nonmelanoma skin cancer Rheumatoid arthritis Family/Other Depression Family/Other Depression Social History (Updated 06/10/24 @ 10:35 by Lisa Mcpherson ~ [facility] [address], [facility] [address]) Narrative: Does not drink alcohol Does not have regular exercise regimen- but works physical job, involving lifting 50 lb loads , 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, 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, lives in [place] What is your current living situation?: I presently have a place to live Problems where you live: no known problems In the past 12 months, utilities in danger of being shut off: no In past 12 months, lack of transportation kept you from medical appts, meetings, work, or getting things needed for daily living: no In the past 12 mos, have been you worried that your food would run out before you had money to buy more?: never true In the past 12 mos, the food you bought just didn't last and you didn't have money to buy more?: never true Smoking Status: Never smoker Do you use any of these nicotine containing products: None Second hand tobacco smoke exposure: No How often do you have a drink containing alcohol: never How often do you have six or more drinks on one occasion: Never AUDIT-C Alcohol total score: 0 Non-prescribed substance use: denies use How often does anyone, including family, friends and others, physically hurt you: never How often does anyone, including family, friends and others, insult or talk down to you: rarely How often does anyone, including family, friends and others, threaten you with harm: never How often does anyone, including family, friends and others, scream or curse at you: rarely Little interest or pleasure in doing things: not at all Feeling down, depressed, or hopeless: not at all service: No Exam Narrative: Exam Narrative: Constitutional: Appears well-developed and well-nourished. Alert. Conversant. Non toxic. HENT: Head: Atraumatic. Nose: Nose normal. Mouth/Throat: Oral mucosa is clear and moist. no trismus. Pharynx normal. Tonsils symmetric. No tonsillar enlargement, erythema, or exudate. She has swelling of the left side of her lower lip in the area where the bee sting occurred. There is of very small umesh on the mucosal surface of the left side of her lower lip. There is no palpable or visible residual stinger. No vesicles. No purulent drainage. Gums and tongue are normal. No trismus. Phonation normal. Posterior or pharyngeal structures are normal. Airway widely patent. Eyes: Conjunctivae normal. EOM normal. Pupils equal, round, and reactive to light. No scleral icterus. Neck: Normal range of motion. Neck supple. No tracheal deviation present. Cardiovascular: Normal rate, regular rhythm. No gallop. No friction rub. No murmur heard. Symmetric radial artery pulses Pulmonary/Chest: Effort normal. No stridor. No respiratory distress. No wheezes. No rales. No rhonchi . No tenderness. Abdominal: Soft. No distension. No mass. No tenderness. No rebound. No guarding. Musculoskeletal: RUE: Normal range of motion. No tenderness. No deformity LUE: Normal range of motion. No tenderness. No deformity RLE: Normal range of motion. No edema. No tenderness. No deformity LLE: Normal range of motion. No edema. No tenderness. No deformity Lymph: No cervical adenopathy. Neurological: Alert and oriented to person, place, and time. Normal strength. CN II-VII intact. No sensory deficit. GCS eye subscore is 4. GCS verbal subscore is 5. GCS motor subscore is 6. Normal coordination Skin: Skin is warm and dry. No hives. No rash noted. No pallor. Normal capillary refill. Psychiatric: Normal mood. Normal affect. Const: Vital Signs, click to edit/add: Vital Signs - 24 hr 08/17/24 15:33 Temperature 98.2 F Pulse Rate [Pulse Oximeter] 74 Respiratory Rate 18 Blood Pressure [Ri ght Upper Arm] 129/79 Pulse Oximetry 95 Oxygen Delivery Me thod Room Air Course Course ED Course: Pleasant 69-year-old female presenting to the ER today with a bee sting on the left side of her lower lip. She has swelling and discomfort of the left-sided lower lip. She is concerned that she may be developing anaphylaxis with the lip swelling. However I think this is probably a local reaction and swelling because of the bee sting that occurred directly into that lower lip. No other swelling of her or pharyngeal structures. No hives. No bronchospasm. No hypotension or signs of anaphylaxis. She has already taken 100 mg of oral Benadryl and some ibuprofen prior to arrival. Will monitor here in the ER to see if there is any sign of progressive swelling or development of airway symptoms. If this occurs could need treatment with IM epi, as well as steroids and additional antihistamines. Reevaluation(s) Reevaluation #1: Recheck-stable. No worsening swelling. Reevaluation #2: Recheck -1649. Remains stable. No worsening swelling. She is comfortable discharging home with her . Vital Signs Vital signs: Initial Vital Signs Temperature 98.2 F 08/17/24 15:33 Temperature Source Temporal Artery Scan 08/17/24 15:33 Pulse Rate 74 08/17/24 15:33 Respiratory Rate 18 08/17/24 15:33 Blood Pressure 129/79 08/17/24 15:33 Blood Pressure Mean 95 08/17/24 15:33 Pulse Oximetry 95 08/17/24 15:33 Oxygen Delivery Method Room Air 08/17/24 15:33 Vital Signs Temperature 98.2 F 08/17/24 15:33 Pulse Rate 74 08/17/24 15:33 Respiratory Rate 18 08/17/24 15:33 Blood Pressure 129/79 08/17/24 15:33 Pulse Oximetry 95 08/17/24 15:33 Oxygen Delivery Method Room Air 08/17/24 15:33 Temperature 98.2 F 08/17/24 15:33 Pulse Rate 74 08/17/24 15:33 Respiratory Rate 18 08/17/24 15:33 Blood Pressure 129/79 08/17/24 15:33 Pulse Oximetry 95 08/17/24 15:33 Oxygen Delivery Method Room Air 08/17/24 15:33 Medical Decision Making MDM Narrative Medical decision making narrative: This patient presents for evaluation of left lower lip swelling. She was stung by a bee directly into her left lower lip about an hour prior to arrival. Signs and symptoms are consistent with a localized reaction to the bee sting. She is not having any other facial swelling, hives, or other systemic symptoms of allergic reaction. No airway involvement, bronchospasm, GI symptoms, hypotension, or other sign of anaphylaxis. She already took 100 mg of Benadryl and 600 mg of ibuprofen at home so we did not administer additional meds here. We observed here for an hour to watch for any signs of progressive swelling that might suggest she might develop an airway problem or any other signs of evolving allergic reaction or anaphylaxis. No progression of her swelling occurred. She does not require epinephrine, epi drip, intubation, or admission for airway monitoring. At this point I suspect this is not a true allergic reaction to the bee sting. Rather, I think this is probably a local swelling due to the bee sting. She already has an EpiPen that she can use at home if her symptoms progress. She will use ibuprofen 600 mg every 6 hours and Benadryl 25-50 mg every 6 hours as needed. Potential for evolving or developing allergic reaction was discussed. Return of anaphylactic symptoms were discussed with patient and they were instructed to inject epi-pen and call 911 should these symptoms occur. Given lack of serious systemic symptoms, lack of respiratory difficulty and no oral or pharyngeal swelling, would not admit at this time for anaphylaxis. There is no signs of anaphylactic shock. Discharge Plan Discharge Clinical Impression: Accidental bee sting Patient Disposition: Home, Self-Care Condition: Stable Instructions: Insect Bite or Sting (ED) Additional Instructions: As we discussed we suspect that your lip is swollen because of insect venom that the sting put directly into your lip. You can treat the swelling and pain with Benadryl 1-2 tablets every 6 hours as needed as well as ibuprofen 3 tablets every 6 hours as needed. You can also use ice for 15 minutes every 2-3 hours to help reduce the swelling. Right now there is no sign of any serious systemic with allergic reaction or anaphylaxis. If you develop swelling in other parts of your face, in your throat, or other parts of your body, trouble breathing, or have any concerns, use your EpiPen right away and come back to the ER immediately. Prescriptions: No Action multivitamin Tablet 1 tab PO QDAY calcium carbonate 600 mg calcium (1,500 mg) tablet 600 mg PO .2x/week magnesium oxide 400 mg (241.3 mg magnesium) tablet 250 mg PO .2x/week epinephrine [EpiPen 2-Andreas] 0.3 mg/0.3 mL auto-injector 0.3 mg IM ONCE Qty: 2 0RF Rx Instructions: as a single dose; may repeat once fluticasone propionate 50 mcg/actuation spray,suspension 1 spray intranasal QDAY Patient Comments: [NO ORIGINAL SIG] cholecalciferol (vitamin D3) 25 mcg (1,000 unit) capsule 25 mcg PO QDAY rosuvastatin 10 mg tablet 10 mg PO QDAY Qty: 90 3RF sertraline 50 mg tablet 50 mg PO DAILY Qty: 90 3RF Follow Up/Referrals: Shari Lawson, COLLECTION SYSTEMS MODELER, SPECIAL EQUIPMENT TECHNICIAN [Primary Care Provider] - Stand Alone Forms: [facility] Info Instructions
[2024-08-17 15:33] VITALS: BP 129/79; PULSE 74; RESP 18; TEMP 36.8; O2SAT 95; BMI 28.5
--- OUTSIDE RECORDS SUMMARY | 2024-08-17 15:58 | XMS_ITS | Clinical Summary ---
Author Organization [facility] Address [place], [place] [address] Care Team Providers Care Catalyst Manufacturing Operator Name Role Phone Pcp, No Primary Care [...] rhinitis, unspecified seasonality, unspecified trigger Inhale 1 Alma in both nostrils once daily if needed for Rhinitis. 16 g 5 07/24/2024 Active fluticasone (50 mcg per actuation) nasal solution (FLONASE) Inhale 1 [place] to both nostrils once daily if needed [...] Encounters Date Type Department Care Team Description 08/14/2024 10:45 AM CDT Nurse/Clinic Staff Only [address] [address] Immunization/Inject ion (ALLERGY INJECTION ) 08/14/2024 Travel 07/31/2024 10:45 AM CDT Nurse/Clinic Staff Only [address] [address] Immunization/Inject ion (ALLERGY INJECTION ) 07/31/2024 Travel 07/21/2024 Refill [facility] [address] [place] [address] Raphael Harmon MD Refill Request (Fluticasone) 07/17/2024 10:45 AM CDT Nurse/Clinic Staff Only [address] [address] Immunization/Inject ion (ALLERGY INJECTION ) 07/17/2024 Travel 07/08/2024 [facility] [address] [place] [address] Raphael Harmon MD Refill Request (New Serum allergy mix) 07/03/2024 10:45 AM CDT Nurse/Clinic Staff Only [address] [address] Immunization/Inject ion (ALLERGY INJECTIONS ) 07/03/2024 Telephone [facility] [address] [facility] [place] [address] Raphael Harmon MD Refill Request (ALLERGY SERUM ORDERS ) 07/03/2024 Travel 06/19/2024 10:45 AM CDT Nurse/Clinic Staff Only [facility] [address] [place] [address] Immunization/Inject ion (ALLERGY INJECTIONS ) 06/19/2024 Travel 06/05/2024 10:45 AM CDT Nurse/Clinic Staff Only [facility] [address] [place] [address] Immunization/Inject ion (ALLERGY INJECTIONS ) 06/05/2024 Travel 05/22/2024 10:45 AM CDT Nurse/Clinic Staff Only [facility] [address] [facility] [address] Immunization/Inject ion (ALLERGY INJECTIONS ) 05/22/2024 Travel from Last 3 Months Immunizations Name [...] 161.3 cm (5' 3.5) 12/03/2023 7:44 AM ACADEMIC SUPPORT COORDINATOR Body Mass Index 29.47 12/03/2023 7:44 AM ACADEMIC SUPPORT COORDINATOR Plan of Treatment Upcoming Encounters Date Type Department Care Team (Late st Contact Info) Description 08/28/2024 10:45 AM CDT Nurse/Clinic Staff Only [address] [address] 09/11/2024 10:45 AM CDT Nurse/Clinic Staff Only [address] [address] 09/25/2024 10:45 AM ACADEMIC SUPPORT COORDINATOR Nurse/Clinic Staff Only [address] [address] 10/13/2024 10:45 AM ACADEMIC SUPPORT COORDINATOR Nurse/Clinic Staff Only [address] [place] [address] Health Maintenance Due Date Last Done Comments [...] CDT Screening SCAN-COLONOSCOPY 12/16/2007 12:0 0 AM ACADEMIC SUPPORT COORDINATOR from Last 3 Months or Most Recently Relevant to Health Maintenance Results * (ABNORMAL) LIPID PANEL W REFLEX MEASURED LDL (03/13/2011 8:41 AM CDT) CHOLESTEROL,TOTAL 214(H) 110 - 199 mg/dL [facility] TRIGLYCERIDES 219(H) <150 mg/dL [facility] HDL CHOLESTEROL 54 >40 mg/dL [facility] CHOL/HDL RATIO 3.96 <4.51 [facility] LDL CHOLESTEROL 116 <131 mg/dL [facility] PATIENT STATUS Fasting [facility] Blood specimen (specimen) BLOOD SPECIMEN / Unknown 03/13/2011 8:41 AM CDT 03/13/2011 8:21 AM CDT Khris Whiteside DO CHEMISTRY [facility] [address] [place] [address] * SCAN-COLONOSCOPY (12/16/2007 12:00 AM ACADEMIC SUPPORT COORDINATOR) Scanner OTHER from Last 3 Months or Most Recently Relevant to Health Maintenance Care Teams Catalyst Manufacturing Operator Relationship Specialty Start Date End Date Pcp, No . PCP - General 04/16/23
--- OUTSIDE RECORDS SUMMARY | 2024-08-17 15:58 | XMS_ITS | Continuity of Care Document ---
Author Organization [facility] Address [address] [place] [address] Phone Care Team Providers Care Signal Maintenance Technician Name Role Phone Dulce KRISHNAMURTHY, Grace Unavailable Unavailable Allergies, Adverse Reactions, Alerts Substance Reaction Status Criticality sulfanilamide Active No Information Penicillins Active No Information Procedures Procedure Date Office/Outpatient Visit,[facility] 2013 Advance Directives Directive Yes / No Effective Date File Name No Information Encounters Encounter Description Practice Location Reason(s) For Visit Diagnoses Date Provider Providers Copied on Encounter [facility], [address], [place], [place], [id number], [place] tel:[phone] [facility] No Information 6 Mehbod Amir. [facility], [address] [place] [address] [address], [place], [id number] , [place]. tel:[phone] Office/Outpat ient Visit,[facility], [address] [place], [place] [address], [place], [address], [place] tel:[phone] [phone] 4 Mehbod Amir. [facility], [address], [place], [place], [id number] , [place]. tel:[phone] Referring Provider: Percy Kate, [facility] [address] [place] [address], [address]. tel:[phone] Family History Family Member Type Diagnosis Age At Onset Problem (finding) Problem (finding) Family history of Yes Problem (finding) Payers Payer name Insurance type Covered libertarian ID Authoriza tion(s) No Information Social History [...]
[2024-08-17 16:52] VITALS: BP 126/68; PULSE 66; RESP 16
== END 2024-08-17 16:53 | disposition home or self-care (01) ==
PROVIDERS: Emergency Provider Emergency Medicine; PCP Nurse Practitioner Family
DX: T63.441A Toxic effect of venom of bees, accidental (unintentional), initial encounter (principal); R22.0 Localized swelling, mass and lump, head
CPT/HCPCS: 99282; 99283

== ENCOUNTER 2024-09-22 15:01 | Emergency (ER) | payer OTHER, SELFPAY ==
[2024-09-22 15:05] VITALS: BP 109/74; PULSE 86; RESP 18; TEMP 36.8; O2SAT 97; BMI 28.3
--- NOTE | 2024-09-22 15:09 | CRLHL7_ITS ---
For Patients: As a result of the Century Cures Act, medical imaging exams and procedure reports are released immediately into your electronic medical record. You may view this report before your referring provider. If you have questions, please contact your health care provider. Indication: Trauma. Technique: Right ankle, 3 views. Comparison: January 06, 2021. Findings/impression: Trimalleolar fracture extending to the ankle mortise. There is significant soft tissue swelling surrounding the ankle. Mild degenerative changes noted throughout the visualized joints. Dictated by Mihai Hein MD @ 09/22/2024 3:47:18 PM (Electronically Signed)
--- NOTE | 2024-09-22 16:58 | ED.LOWEXIN ---
HPI - Extremity Injury (Lower) General Chief Complaint: Extremity Pain/Injury, Lower Stated Complaint: R ankle injury Time Seen by Provider: 09/22/24 16:50 History of Present Illness HPI Narrative: This 69-year-old female comes in with the right ankle injury that occurred a few hours prior to arrival. She was ambulating down some steps and misstepped on the last step and twisted her ankle. She has bruising and swelling of the right ankle and is not able to bear weight. She does not report any other injury. She did not have loss of consciousness. She last ate at noon about 5 hours ago. She is not on any anticoagulants. Related Data Home Medications ?Medication ?Instructions ?Recorded ?Confirmed multivitamin 1 tab PO QDAY 08/18/22 09/18/24 calcium carbonate 600 mg PO .2x/week 04/17/23 09/18/24 cholecalciferol (vitamin D3) 25 25 mcg PO QDAY 04/17/23 09/18/24 mcg (1,000 unit) capsule fluticasone propionate 50 1 spray intranasal QDAY 04/17/23 09/18/24 mcg/actuation nasal spray,suspension magnesium oxide 400 mg (241.3 mg 250 mg PO .2x/week 04/17/23 09/18/24 magnesium) tablet Previous Rx's ?Medication ?Instructions ?Recorded epinephrine 0.3 mg/0.3 mL 0.3 mg (0.3 mL) IM ONCE #2 ea 01/18/23 injection, auto-injector (EpiPen 2-Andreas) rosuvastatin 10 mg tablet 10 mg PO QDAY #90 tabs 08/06/24 sertraline 50 mg tablet 50 mg PO DAILY #90 tabs 08/06/24 triamcinolone acetonide 0.1 % 1 applic topical QDAY 7 days #60 mL 09/18/24 lotion Allergies Allergy/AdvReac Type Severity Reaction Status Date / Time latex Allergy Mild Rash Verified 09/18/24 14:10 lactose Allergy Verified 09/18/24 14:10 Penicillins Allergy Verified 09/18/24 14:10 Sulfa (Sulfonamide Allergy Verified 09/18/24 14:10 Antibiotics) gluten AdvReac Verified 09/18/24 14:10 Review of Systems Status of ROS: Reports: 10 or more systems reviewed and unremarkable except as noted in History and below Narrative: Constitutional: No fevers, no weight gain or loss. Eyes: No discharge. No vision changes. HENT: No congestion, no sore throat, no ear pain. Cardiovascular: No chest pain, no palpitations. Respiratory: No shortness of breath, no wheezes, no cough. Gastrointestinal: No abdominal pain, no vomiting, no diarrhea. Genitourinary: No dysuria, no hematuria. Musculoskeletal: Right ankle injury as described above. Skin: No rashes, no pruritis. Neurological: No dizziness, weakness, sensory change, speech change. Endo/Heme/Allergies: No bruising or bleeding. No polydipsia. Pysch: no suicidality, no anxiety, no insomnia. All other systems reviewed and are negative. [facility] Medical History (Updated 09/22/24 @ 17:54 by Ranjit Cleveland MD) Asthma ?J45.909 - Unspecified asthma, uncomplicated (ICD-10) Surgical History History of tubal ligation (1986) ?Z98.51 - Tubal ligation status (ICD-10) Family History (Updated 06/10/24 @ 10:46 by Shari Lawson, JAVA MOBILE DEVELOPER, MVA REACTOR OPERATOR) Maternal Grandfather Alcoholism Father Colon cancer Coronary artery disease Depression Diabetes Nonmelanoma skin cancer Mother Colon cancer Depression Nonmelanoma skin cancer Rheumatoid arthritis Family/Other Depression Family/Other Depression Social History (Updated 06/10/24 @ 10:35 by Lisa Mcpherson ~ [facility] Narrative: Does not drink alcohol Does not have regular exercise regimen- but works physical job, involving lifting 50 lb loads , 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, 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, lives in [place] What is your current living situation?: I presently have a place to live Problems where you live: no known problems In the past 12 months, utilities in danger of being shut off: no In the past 12 mos, have been you worried that your food would run out before you had money to buy more?: never true In the past 12 mos, the food you bought just didn't last and you didn't have money to buy more?: never true Smoking Status: Never smoker Do you use any of these nicotine containing products: None Second hand tobacco smoke exposure: No How often do you have a drink containing alcohol: never How often do you have six or more drinks on one occasion: Never AUDIT-C Alcohol total score: 0 Non-prescribed substance use: denies use How often does anyone, including family, friends and others, physically hurt you: never How often does anyone, including family, friends and others, insult or talk down to you: rarely How often does anyone, including family, friends and others, threaten you with harm: never How often does anyone, including family, friends and others, scream or curse at you: rarely service: No Health Related Social Needs: Other personal risk factors, not elsewhere classified (Z91.89) Exam Narrative: Exam Narrative: Constitutional: Well-developed, well-nourished, no acute distress. HEENT: Normocephalic, atraumatic. Neck: Normal range of motion. Nontender. Supple. Heart: Regular. No murmurs. Normal rate. Intact distal pulses. Lungs: Clear to auscultation. No chest discomfort. No wheezes, rhonchi, or rales. Abdomen: Normal bowel sounds. Nontender. No rebound tenderness. Genitalia: Deferred. Back: No midline tenderness. Normal range of motion. Extremities: Right ankle has bruising and swelling. Skin: Intact. No rash. Warm. No erythema or pallor. Neurologic: No altered sensation. No weakness. Alert and oriented. Psychiatric: No suicidality. No anxiety or depression. No insomnia. Nursing notes and vitals signs are reviewed. Const: Vital Signs, click to edit/add: Vital Signs - 24 hr 09/22/24 15:05 Temperature 98.2 F Pulse Rate [Pulse Oximeter] 86 Respiratory Rate 18 Blood Pressure [Le ft Upper Arm] 109/74 Pulse Oximetry 97 Oxygen Delivery Me thod Room Air Course Vital Signs Vital signs: Initial Vital Signs Temperature 98.2 F 09/22/24 15:05 Temperature Source Temporal Artery Scan 09/22/24 15:05 Pulse Rate 86 09/22/24 15:05 Pulse Rhythm Regular 09/22/24 15:05 Respiratory Rate 18 09/22/24 15:05 Blood Pressure 109/74 09/22/24 15:05 Blood Pressure Mean 85 09/22/24 15:05 Blood Pressure Position Sitting 09/22/24 15:05 Pulse Oximetry 97 09/22/24 15:05 Oxygen Delivery Method Room Air 09/22/24 15:05 Vital Signs Temperature 98.2 F 09/22/24 15:05 Pulse Rate 86 09/22/24 15:05 Respiratory Rate 18 09/22/24 15:05 Blood Pressure 109/74 09/22/24 15:05 Pulse Oximetry 97 09/22/24 15:05 Oxygen Delivery Method Room Air 09/22/24 15:05 Temperature 98.2 F 09/22/24 15:05 Pulse Rate 86 09/22/24 15:05 Respiratory Rate 18 09/22/24 15:05 Blood Pressure 109/74 09/22/24 15:05 Pulse Oximetry 97 09/22/24 15:05 Oxygen Delivery Method Room Air 09/22/24 15:05 MDM - Extremity Injury (Lower) MDM Narrative Medical decision making narrative: This patient comes in with an injury to her right ankle. X-ray images show evidence of a trimalleolar fracture. The ankle of course is unstable but does not appear to be dislocated or insignificant need of improved position. I did contact the orthopedic physician's research assistant professor director of pediatric rehabilitation and made arrangement for follow-up with orthopedic clinic. The patient was placed in a Wilton Humphries splint and I did provide a little lateral pressure over the medial malleolus to improve the alignment. The patient has crutches at home that she can use. She did receive a prescription for [place] from the [facility]. Imaging Data XR R Ankle: Radiologist's impression: Trimalleolar fracture extending to the ankle mortise. There is significant soft tissue swelling surrounding the ankle. Mild degenerative changes noted throughout the visualized joints. Discharge Plan Discharge Clinical Impression: Ankle fracture Additional Instructions: Wear splint and use crutches for ambulating. An appointment is arranged for orthopedic department. Call [phone] connect with that clinic if needed. Prescriptions: No Action multivitamin Tablet 1 tab PO QDAY calcium carbonate 600 mg calcium (1,500 mg) tablet 600 mg PO .2x/week magnesium oxide 400 mg (241.3 mg magnesium) tablet 250 mg PO .2x/week epinephrine [EpiPen 2-Andreas] 0.3 mg/0.3 mL auto-injector 0.3 mg IM ONCE Qty: 2 0RF Rx Instructions: as a single dose; may repeat once triamcinolone acetonide 0.1 % lotion 1 applic topical QDAY 7 Days Qty: 60 0RF Rx Instructions: 1-2 drops to ear daily for 7 days. fluticasone propionate 50 mcg/actuation spray,suspension 1 spray intranasal QDAY Patient Comments: [NO ORIGINAL SIG] cholecalciferol (vitamin D3) 25 mcg (1,000 unit) capsule 25 mcg PO QDAY rosuvastatin 10 mg tablet 10 mg PO QDAY Qty: 90 3RF sertraline 50 mg tablet 50 mg PO DAILY Qty: 90 3RF Follow Up/Referrals: Shari Lawson, JAVA MOBILE DEVELOPER, MVA REACTOR OPERATOR [Primary Care Provider] -
--- OUTSIDE RECORDS SUMMARY | 2024-09-22 17:06 | XMS_ITS | Continuity of Care Document ---
Author Organization [facility] Address [address] [place] [address] Phone Care Team Providers Care Clinical Lab Assistant Name Role Phone Dulce KRISHNAMURTHY, Grace Unavailable Unavailable Allergies, Adverse Reactions, Alerts Substance Reaction Status Criticality sulfanilamide Active No Information Penicillins Active No Information Procedures Procedure Date Office/Outpatient Visit,[facility] 2013 Advance Directives Directive Yes / No Effective Date File Name No Information Encounters Encounter Description Practice Location Reason(s) For Visit Diagnoses Date Provider Providers Copied on Encounter [facility], [address], [place], [place], [id number], [place] tel:[phone] 4825 [facility] No Information 6 Mehbod Amir. [facility], [address] [place] [address] [address], [place], [id number] , [place]. tel:[phone] Office/Outpat ient Visit,[facility] Z [facility], [address] [place], [place] [address], [place], [address], [place] tel:[phone] 4 Mehbod Amir. [facility], [address], [place], [place], [id number] , [place]. tel:[phone] Referring Provider: Percy Kate, [facility] [address] [place] [address], [address]. tel:[phone] Family History Family Member Type Diagnosis Age At Onset Problem (finding) Problem (finding) Family history of Yes Problem (finding) Payers Payer name Insurance type Covered alliance party ID Authoriza tion(s) No Information Social [...]
--- OUTSIDE RECORDS SUMMARY | 2024-09-22 17:06 | XMS_ITS | Clinical Summary ---
Author Organization [facility] Address [place], [place] [address] Care Team Providers Care Social Worker Assistant Name Role Phone Pcp, No Primary Care [...] 0 07/13/2011 Active sertraline (ZOLOFT) 100 mg tabletIndications: Depression with anxiety Take 1 tablet by mouth [...] 02/02/2023 Active EPINEPHrine (EpiPen) 0.3 mg/0.3 mL auto-injectorIndic ations:Allergic rhinitis, unspecified seasonality, unspecified trigger Inject 0.3 mg (1 Pen) intramuscular each time if needed for Allergic Reaction. 2 Each 3 01/21/2024 Active fluticasone (50 mcg per actuation) nasal solution (FLONASE)Indicatio ns:Allergic rhinitis, unspecified seasonality, unspecified trigger Inhale 1 [place] in both nostrils once daily if needed for Rhinitis. 16 g 5 07/24/2024 Active Active Problems Problem Noted Date Diagnosed Date Vitamin D deficiency 03/23/2011 Chronic rhinitis 01/16/2008 Nonspecific abnormal results of thyroid function study 01/15/2008 Resolved Problems Problem Noted Date Diagnosed Date Resolved Date Nonspecific abnormal results of thyroid function study 01/16/2008 01/16/2008 Iron deficiency anemia, unspecified 01/16/2008 03/23/2011 Encounters Date Type Department Care Team Description 09/11/2024 10:45 AM CDT Nurse/Clinic Staff Only [address] [place] [address] Immunization/Inject ion (ALLERGY INJECTION ) 09/11/2024 Travel 08/28/2024 10:45 AM CDT Nurse/Clinic Staff Only [address] [address] Immunization/Inject ion (ALLERGY INJECTION) 08/28/2024 Travel 08/14/2024 10:45 AM CDT Nurse/Clinic Staff Only [address] [address] Immunization/Inject ion (ALLERGY INJECTION ) 08/14/2024 Travel 07/31/2024 10:45 AM CDT Nurse/Clinic Staff Only [address] [address] Immunization/Inject ion (ALLERGY INJECTION ) 07/31/2024 Travel 07/21/[address] [address] Raphael Harmon MD Refill Request (Fluticasone) 07/17/2024 10:45 AM CDT Nurse/Clinic Staff Only [address] [address] Immunization/Inject ion (ALLERGY INJECTION ) 07/17/2024 Travel 07/08/2024 Orders Only [facility] [address] [place] [address] Raphael Harmon MD Refill Request (New Serum allergy mix) 07/03/2024 10:45 AM CDT Nurse/Clinic Staff Only [facility] [address] [facility] [place] [address] Immunization/Inject ion (ALLERGY INJECTIONS ) 07/03/2024 Telephone [facility] [address] [place] [address] Raphael Harmon MD Refill Request (ALLERGY SERUM ORDERS ) 07/03/2024 Travel from Last 3 Months Immunizations Name Administration Dates Next Due Td (Age >=7 Years) 06/06/2007 Family History Medical History Relation Name Comments Psychiatric illness Daughter 2 Crystal depressi on Cancer-colon Father Santiago Pedrozasert Diabetes Father Santiago Bussert Heart Disease Father Santiago Bussert Hypertension Father Santiago Pedrozasert Other Father Santiago Pedrozasert kidney disease Psychiatric illness Father Santiago Pedrozasert depressi on Psychiatric illness Maternal Grandfather committed suicide Diabetes Maternal Grandmother Hypertension Mother Gregoria Pedrozasert Psychiatric illness Mother Gregoria Pedrozasert depressi on, anxiety Diabetes Paternal Grandfather Diabetes Sister 2 x4, Dasha Baron rt Alexx, Nubia Mendenhall, Maru Penny, Carmen Self Psychiatric illness Son 2 Thomas depressi on Relation Name Status Comments Brother Alive x1 Daughter 1 Alive x2 Daughter 2 Crystal Father Santiago Watt 2006 Maternal Grandfather Maternal Grandmother Mother Gregoria Watt Alive Paternal Grandfather Paternal Grandmother Sister 1 [...] 161.3 cm (5' 3.5) 12/03/2023 7:44 AM HOUSEKEEPER HOME Body Mass Index 29.47 12/03/2023 7:44 AM HOUSEKEEPER HOME Plan of Treatment Upcoming Encounters Date Type Department Care Team (Late st Contact Info) Description 09/25/2024 10:45 AM HOUSEKEEPER HOME Nurse/Clinic Staff Only [facility] [address] [place] [address] 10/13/2024 10:45 AM HOUSEKEEPER HOME Nurse/Clinic Staff Only [facility] [address] [facility] [place] [address] Health Maintenance Due Date Last Done Comments [...] 1 - PCV) 2022 COVID-19 vaccine series ( - season) 2024 08/21/2023, 05/19/2022, 09/18/2021, Additional history exists Influenza for age 65+ 07/13/2024 BMI (ht and wt on same day) for age 18+ 12/03/2024 12/03/2023 Procedures Procedure Name Priority Date/Time Associated Diagnosis Comments LIPID PANEL W REFLEX MEASURED LDL Routine 03/13/2011 8:41 AM CDT Screening SCAN-COLONOSCOPY 12/16/2007 12:0 0 AM HOUSEKEEPER HOME from Last 3 Months or Most Recently Relevant to Health Maintenance Results * (ABNORMAL) LIPID PANEL W REFLEX MEASURED LDL (03/13/2011 8:41 AM CDT) CHOLESTEROL,TOTAL 214(H) 110 - 199 mg/dL [facility] TRIGLYCERIDES 219(H) <150 mg/dL [facility] HDL CHOLESTEROL 54 >40 mg/dL [facility] CHOL/HDL RATIO 3.96 <4.51 [facility] LDL CHOLESTEROL 116 <131 mg/dL [facility] PATIENT STATUS Fasting [facility] Blood specimen (specimen) BLOOD SPECIMEN / Unknown 03/13/2011 8:41 AM CDT 03/13/2011 8:21 AM CDT Khris Whiteside DO CHEMISTRY [facility] [address] [place] [address] * SCAN-COLONOSCOPY (12/16/2007 12:00 AM HOUSEKEEPER HOME) Scanner OTHER from Last 3 Months or Most Recently Relevant to Health Maintenance Care Teams Social Worker Assistant Relationship Specialty Start Date End Date Pcp, No . PCP - General 04/16/23
[2024-09-22 18:14] VITALS: BP 109/74; PULSE 86; RESP 18; TEMP 36.8
== END 2024-09-22 18:15 | disposition home or self-care (01) ==
LOC: ED 17:03
PROVIDERS: Emergency Provider Emergency Medicine Emergency Medical Services; PCP Nurse Practitioner Family; Visit Provider Emergency Medicine Emergency Medical Services
DX: S82.854A Nondisplaced trimalleolar fracture of right lower leg, initial encounter for closed fracture (principal); W10.9XXA Fall (on) (from) unspecified stairs and steps, initial encounter
CPT/HCPCS: 29515; 73610; 99283; 99284

== ENCOUNTER 2024-09-23 15:16 | Outpatient (CLI) | payer OTHER, SELFPAY ==
--- OUTSIDE RECORDS SUMMARY | 2024-09-23 15:19 | XMS_ITS | Clinical Summary ---
Author Organization [facility] Address [place], [place] [address] Care Team Providers Care Wallpaper Installer Name Role Phone Pcp, No Primary Care [...] rhinitis, unspecified seasonality, unspecified trigger Inhale 1 [place] in both nostrils once daily if needed [...] 09/11/2024 10:45 AM CDT Nurse/Clinic Staff [place] [address] [place] [address] Immunization/Inject ion (ALLERGY INJECTION ) 09/11/2024 Travel 08/28/2024 10:45 AM CDT Nurse/Clinic Staff Only [address] [address] Immunization/Inject ion (ALLERGY INJECTION) 08/28/2024 Travel 08/14/2024 10:45 AM CDT Nurse/Clinic Staff Only [address] [address] Immunization/Inject ion (ALLERGY INJECTION ) 08/14/2024 Travel 07/31/2024 10:45 AM CDT Nurse/Clinic Staff Only [address] [address] Immunization/Inject ion (ALLERGY INJECTION ) 07/31/2024 Travel 07/21/[address] [address] Raphael Harmon MD Refill Request (Fluticasone) 07/17/2024 10:45 AM CDT Nurse/Clinic Staff Only [address] [address] Immunization/Inject ion (ALLERGY INJECTION ) 07/17/2024 Travel 07/08/2024 Orders Only [facility] [address] [place] [address] Rpahael Harmon MD Refill Request (New Serum allergy mix) 07/03/2024 10:45 AM CDT Nurse/Clinic Staff Only [facility] [address] [facility] [place] [address] Immunization/Inject ion (ALLERGY INJECTIONS ) 07/03/2024 Telephone [facility] [address] [place] [address] [address] Raphael Harmon MD Refill Request (ALLERGY SERUM [...] 161.3 cm (5' 3.5) 12/03/2023 7:44 AM DEVELOPER ANALYST Body Mass Index 29.47 12/03/2023 7:44 AM DEVELOPER ANALYST Plan of Treatment Upcoming Encounters Date Type Department Care Team (Late st Contact Info) Description 09/25/2024 10:45 AM DEVELOPER ANALYST Nurse/Clinic Staff Only [facility] [address] [place] [address] 10/13/2024 10:45 AM DEVELOPER ANALYST Nurse/Clinic Staff Only [facility] [address] [facility] [place] [address] Health Maintenance Due Date Last Done Comments [...] CDT Screening SCAN-COLONOSCOPY 12/16/2007 12:0 0 AM DEVELOPER ANALYST from Last 3 Months or Most Recently Relevant to Health Maintenance Results * (ABNORMAL) LIPID PANEL W REFLEX MEASURED LDL (03/13/2011 8:41 AM CDT) CHOLESTEROL,TOTAL 214(H) 110 - 199 mg/dL [facility] TRIGLYCERIDES 219(H) <150 mg/dL [facility] HDL CHOLESTEROL 54 >40 mg/dL [facility] CHOL/HDL RATIO 3.96 <4.51 [facility] LDL CHOLESTEROL 116 <131 mg/dL [facility] PATIENT STATUS Fasting [facility] Blood specimen (specimen) BLOOD SPECIMEN / Unknown 03/13/2011 8:41 AM CDT 03/13/2011 8:21 AM CDT Khris Whiteside DO CHEMISTRY [facility] [address] [place] [address] * SCAN-COLONOSCOPY (12/16/2007 12:00 AM DEVELOPER ANALYST) Scanner OTHER from Last 3 Months or Most Recently Relevant to Health Maintenance Care Teams Wallpaper Installer Relationship Specialty Start Date End Date Pcp, No . PCP - General 04/16/23
--- OUTSIDE RECORDS SUMMARY | 2024-09-23 15:19 | XMS_ITS | Continuity of Care Document ---
Author Organization [facility] Address [address] [place] [address] Phone Care Team Providers Care Circulation Assistant Name Role Phone Dulce KRISHNAMURTHY, Grace Unavailable Unavailable Allergies, Adverse Reactions, Alerts Substance Reaction Status Criticality sulfanilamide Active No Information Penicillins Active No Information Procedures Procedure Date Office/Outpatient Visit,[facility] 2013 Advance Directives Directive Yes / No Effective Date File Name No Information Encounters Encounter Description Practice Location Reason(s) For Visit Diagnoses Date Provider Providers Copied on Encounter [facility], [address], [place], [place], [id number], [place] tel:[phone] [facility] No Information 6 Mehbod Amir. [facility], [address] [place] [address] [address], [place], [address] , [place]. tel:[phone] Office/Outpat ient Visit,[facility] Z [facility], [address] [place], [place] [address], [place], [address], [place] tel:[phone] 4 Mehbod Amir. [facility], [address], [place], [place], [address] , [place]. tel:[phone] Referring Provider: Percy Kate, [facility] [address] [place] [address], [address]. tel:[phone] Family History Family Member Type Diagnosis Age [...]
== END 2024-09-23 15:17 | disposition home or self-care (01) ==
PROVIDERS: PCP Nurse Practitioner Family; Visit Provider Nurse Practitioner Family
DX: Z01.818 Encounter for other preprocedural examination (principal)
CPT/HCPCS: 73700; 80048; 85025

== ENCOUNTER 2024-09-26 07:08 | Day surgery (SDC) | payer OTHER, SELFPAY ==
[2024-09-26] VITALS (16 sets, daily range): BP systolic 111–138; BP diastolic 71–91; PULSE 60–71; RESP 14–16; TEMP 36.2–36.3; O2SAT 93–96; BMI 28.3
--- OUTSIDE RECORDS SUMMARY | 2024-09-26 07:10 | XMS_ITS | Continuity of Care Document ---
Author Organization [facility] Address [address] [place] [address] Phone Care Team Providers Care Marketing Coordinator Name Role Phone Dulce KRISHNAMURTHY, Grace Unavailable Unavailable Allergies, Adverse Reactions, Alerts Substance Reaction Status Criticality sulfanilamide Active No Information Penicillins Active No Information Procedures Procedure Date Office/Outpatient Visit,[facility] 2013 Advance Directives Directive Yes / No Effective Date File Name No Information Encounters Encounter Description Practice Location Reason(s) For Visit Diagnoses Date Provider Providers Copied on Encounter [facility], [address], [place], [place], [id number], [place] tel:[phone] 7298 [facility] No Information 6 Mehbod Amir. [facility], [address] [place] [address] [address], [place], [id number] , [place]. tel:[phone] Office/Outpat ient Visit,[facility] Z [facility], [address] [place], [place] [address], [place], [address], [place] tel:[phone] [facility] 4 Mehbod Amir. [facility], [address], [place], [place], [id number] , [place]. tel:[phone] Referring Provider: Percy Kate, [facility] [address] [place] [address], [address]. tel:[phone] Family History Family Member Type Diagnosis Age [...]
--- OUTSIDE RECORDS SUMMARY | 2024-09-26 07:10 | XMS_ITS | Clinical Summary ---
Author Organization [facility] Address [place], [place] [address] Care Team Providers Care Plant Operator Control Room Operator Name Role Phone Pcp, No Primary [...] rhinitis, unspecified seasonality, unspecified trigger Inhale 1 [place] in both nostrils once daily if needed [...] 09/11/2024 10:45 AM CDT Nurse/Clinic Staff Only [address] [place] [address] Immunization/Inject ion (ALLERGY INJECTION ) 09/11/2024 Travel 08/28/2024 10:45 AM CDT Nurse/Clinic Staff Only [address] [address] Immunization/Inject ion (ALLERGY INJECTION) 08/28/2024 Travel 08/14/2024 10:45 AM CDT Nurse/Clinic Staff Only [address] [address] Immunization/Inject ion (ALLERGY INJECTION ) 08/14/2024 Travel 07/31/2024 10:45 AM CDT Nurse/Clinic Staff Only [address] [address] Immunization/Inject ion (ALLERGY INJECTION ) 07/31/2024 Travel 07/21/[address] [address] Raphael Harmon MD Refill Request (Fluticasone) 07/17/2024 10:45 AM CDT Nurse/Clinic Staff Only [address] [address] Immunization/Inject ion (ALLERGY INJECTION ) 07/17/2024 Travel 07/08/2024 [place] [facility] [place] [address] [place] [address] Raphael Harmon MD Refill Request (New Serum allergy mix) 07/03/2024 10:45 AM CDT Nurse/Clinic Staff Only [facility] [address] [facility] [address] Immunization/Inject ion (ALLERGY INJECTIONS ) 07/03/2024 Telephone [facility] [address] [place] [address] [address] Raphael Harmon MD Refill Request (ALLERGY SERUM [...] 161.3 cm (5' 3.5) 12/03/2023 7:44 AM SCOWMAN Body Mass Index 29.47 12/03/2023 7:44 AM SCOWMAN Plan of Treatment Upcoming Encounters Date Type Department Care Team (Late st Contact Info) Description 10/13/2024 10:45 AM SCOWMAN Nurse/Clinic Staff Only [facility] [address] [place] [address] Health Maintenance Due Date Last Done Comments [...] - PCV) 2022 COVID-19 vaccine series ( season) 2024 08/21/2023, 05/19/2022, 09/18/2021, Additional history exists Influenza for age 65+ 07/13/2024 BMI (ht and wt on same day) for age 18+ 12/03/2024 12/03/2023 Procedures Procedure Name Priority Date/Time Associated Diagnosis Comments LIPID PANEL W REFLEX MEASURED LDL Routine 03/13/2011 8:41 AM CDT Screening SCAN-COLONOSCOPY 12/16/2007 12:0 0 AM SCOWMAN from Last 3 Months or Most Recently Relevant to Health Maintenance Results * (ABNORMAL) LIPID PANEL W REFLEX MEASURED LDL (03/13/2011 8:41 AM CDT) CHOLESTEROL,TOTAL 214(H) 110 - 199 mg/dL [facility] TRIGLYCERIDES 219(H) <150 mg/dL [facility] HDL CHOLESTEROL 54 >40 mg/dL [facility] CHOL/HDL RATIO 3.96 <4.51 [facility] LDL CHOLESTEROL 116 <131 mg/dL [facility] PATIENT STATUS Fasting [facility] Blood specimen (specimen) BLOOD SPECIMEN / Unknown 03/13/2011 8:41 AM CDT 03/13/2011 8:21 AM CDT Khris Whiteside DO CHEMISTRY [facility] [address] [place] [address] * SCAN-COLONOSCOPY (12/16/2007 12:00 AM SCOWMAN) Scanner OTHER from Last 3 Months or Most Recently Relevant to Health Maintenance Care Teams Plant Operator Control Room Operator Relationship Specialty Start Date End Date Pcp, No . PCP - General 04/16/23
[2024-09-26] MEDS: fentaNYL 100 MCG/2 ML inj IVP (07:57)
[2024-09-26] MEDS: MIDAZOLAM HCL 1 MG/ML inj IVP (07:57)
[2024-09-26] MEDS: SODIUM CHLORIDE 0.9 % (FLUSH) 10 ML SYRINGE IVF (07:59)
--- NOTE | 2024-09-26 08:00 | SUR.PREOP ---
TIME?OUT:?0756 PT/Wanda Chadwick RN/Dr. Prosper MDA?VERIFICATION?OF?SURGICAL?SITE right ankle,?PROCEDURE,?AND?CONSENT OBTAINED?PRIOR?TO?INVASIVE?PROCEDURE.
--- NOTE | 2024-09-26 08:17 | P.NB_ITS ---
Nerve Block Nerve Block Time Seen by Provider: 08:00 Date Seen: 09/26/24 Type of block requested by surgeon for post-operative analgesia: popliteal Side: right Time out performed: Yes Verification of patient name: Yes Verification of date of : Yes Site marking: site marked Name of person performing procedure: Prosper Continuous monitoring Was continuous monitoring of O2 sat, B/P, child monitor, recorded every 15 minutes?: Yes Procedure Checklist: sterile prep, needles and gloves Ultrasound guided. Images saved: Yes Medications given in 5ml increments after negative aspiration: Marcaine %: 0.5 mL: 20 Needle gauge: 20 Patient tolerated procedure well: Yes Additional comments: Needle noted adjacent to nerve Block Charges Block Charge (with Pro Fee): Sciatic Nerve Use of Ultrasound Machine for Block: Yes- US Guidance/pain block
--- NOTE | 2024-09-26 08:17 | P.NB_ITS ---
Nerve Block Nerve Block Time Seen by Provider: 08:00 Date Seen: 09/26/24 Type of block requested by surgeon for post-operative analgesia: adductor canal Side: right Time out performed: Yes Verification of patient name: Yes Verification of date of : Yes Site marking: site marked Name of person performing procedure: Prosper Continuous monitoring Was continuous monitoring of O2 sat, B/P, animal nutrition consultant, recorded every 15 minutes?: Yes Procedure Checklist: sterile prep, needles and gloves Ultrasound guided. Images saved: Yes Medications given in 5ml increments after negative aspiration: Marcaine %: 0.5 mL: 15 Needle gauge: 20 Patient tolerated procedure well: Yes Block Charges Block Charge (with Pro Fee): Femoral Nerve Use of Ultrasound Machine for Block: Yes- US Guidance/pain block
--- NOTE | 2024-09-26 08:18 | W.ANESCHARGE ---
Anesthesia Charges Start Date/Time Anesthesia Start Date: 09/26/24 Anesthesia Start Time: 08:34 Stop Date/Time Anesthesia Stop Date: 09/26/24 Anesthesia Stop Time: 11:40
--- NOTE | 2024-09-26 08:18 | W.PM.H&PU ---
History & Physical Update History & Physical Update H&P Reviewed and patient assessed: No changes noted
--- NOTE | 2024-09-26 08:20 | P.ORPRC_ITS ---
Procedure Note Date of procedure: 09/26/24 Procedure: PREOPERATIVE DIAGNOSES: 1. Right trimalleolar ankle fracture, closed, displaced POSTOPERATIVE DIAGNOSES: 1. Right trimalleolar ankle fracture, closed, displaced NAME OF OPERATION: 1. Right ankle fracture open reduction internal fixation SURGEON: Milo Becerra MD CONTINUOUS IMPROVEMENT DIRECTOR: Adeola Muller P.A.-C.; An executive assistant to general counsel was critical for this case to aide in patient positioning, leg manipulation, tissue retraction, closure, and splinting. ANESTHESIA: Spinal plus regional nerve blocks (adductor and popliteal). EBL: 15 mL IMPLANTS: Arthrex 4-hole distal fibular locking plate with 3.0 mm distal locking screws and 3.5mm proximal locking and nonlocking screws for lateral malleolus fixation; two 4.0 mm Arthrex partially threaded cancellous screws for medial malleolar fixation. TOURNIQUET: 98 minutes at 250 mmHg INDICATIONS: The patient is a pleasant 69-year-old female who an injury to her right ankle earlier this week after missing a step and twisting her ankle. Workup included x-rays, which revealed an unstable, displaced trimalleolar ankle fracture. Given the unstable nature of this injury, surgery was recommended to improve alignment and stabilize the ankle. Prior to surgery, the risks and benefits of the procedure were discussed with the patient, all questions were answered, and informed consent was obtained. FINDINGS: Closed, displaced, short oblique, mildly comminuted Sanders B distal fibula fracture; displaced transverse medial malleolus fracture; displaced, comminuted posterior malleolus fracture. After surgical stabilization of the medial and lateral malleolus fractures, the posterior malleolus fracture was anatomically reduced. External rotation stress x-rays revealed firm intact syndesmosis. PROCEDURE: Patient seen preoperatively and operative site was marked. Regional nerve blocks were performed by anesthesia staff. The patient was then brought to the operating room and spinal anesthesia was administered by anesthesia staff. She was then placed in supine position on the OR table. A tourniquet was placed on the patient's right thigh and right lower extremity was prepped and draped in usual sterile fashion. She was given 1 g IV Ancef preoperatively for prophylaxis. A surgical time-out was performed confirming patient identity, surgical site, and surgical procedure. The operative extremity was exsanguinated with an Esmarch, and the tourniquet inflated to 250 mmHg. A longitudinal incision was made along the posterior border of the distal fibula. Incision was carried through the skin and subcutaneous tissues, while protecting any crossing neurologic structures. The fracture was encountered, and cleared of interposed periosteum and fracture hematoma. Fracture site was then thoroughly irrigated with normal saline. The fracture was reduced and temporarily held with a reduction clamp. Fluoroscopic images were obtained which confirmed anatomic reduction of the distal fibula. A 4 hole distal fibula locking plate was then selected and the fixed to the distal fibula with BB tacks. Plate was then secured proximally with a single 3.5 mm nonlocking cortical screw. Plate was then fixed distally with 3.0 mm locking screws. Two additional 3.5 mm locking screws were then placed proximally. Following C-arm confirmation of appropriate plate position, and screw length, attention was turned to the fixation of the medial malleolus fracture. A longitudinal incision was made overlying the medial malleolar fracture. Blunt dissection was utilized to dissect through the subcutaneous tissues to allow us to protect the crossing neurovascular structures. The fracture was identified and cleared of interposed periosteum and fracture hematoma. A small arthrotomy was made to allow for visualization of the fracture at the articular surface. The fracture was reduced and held with a pointed reduction clamp. Two guide pins for the 4-0 cannulated screws were then drilled in a retrograde fashion across the fracture. Fluoroscopic imaging confirmed anatomic reduction of the fracture and good placement of the pins. The pins were then overdrilled, and partially-threaded 4.0 mm cannulated screws with washers were secured into position over the pins. Fluoroscopic imaging confirmed anatomic reduction of the medial, lateral, posterior malleolar fracture with good placement of plate and screws. After confirming appropriate reduction and positioning of the plate and screws using fluoroscopic imaging, an external rotation stress was placed on the ankle to test for syndesmosis stability. With external rotation stress, there was no widening of the syndesmosis or medial clear space, and mortise remained symmetric. At this stage, the wounds were thoroughly irrigated with normal saline. Laterally, deep fascia was closed over the plate using 0 Vicryl [id number] interrupted sutures. Medially, the arthrotomy was closed with 0 Vicryl [id number] interrupted sutures. The tourniquet was then released. Total tourniquet time was 98 minutes. Hemostasis was achieved electrocautery. Skin incisions were then closed with 3-0 Vicryl inverted interrupted subcutaneous stitches followed by running 3-0 nylon sutures. Sterile dressings were applied followed by the application of a well-padded short-leg splint. The patient was awoken from anesthesia and transferred to the PACU in stable condition. PLAN: 1. Ice and elevation of operative extremity for pain and swelling. 2. Tylenol and oxycodone as needed for pain. 3. DVT prophylaxis: Aspirin 81 mg b.i.d. for 4 weeks. 4. Toe-touch weight-bearing operative extremity for 6 weeks. 5. Keep splint clean and dry. 6. Follow up in Orthopedic Clinic in 10-14 days for wound check and splint removal.
--- NOTE | 2024-09-26 08:30 | CRLHL7_ITS ---
For Patients: As a result of the Cures Act, medical imaging exams and procedure reports are released immediately into your electronic medical record. You may view this report before your referring provider. If you have questions, please contact your health care provider. Indication: Intra-op right ankle ORIF Technique: Five fluoroscopic images of the right ankle. Fluoroscopic time 1 minute 37 seconds. IMPRESSION: Fluoroscopic guidance for ORIF right ankle. Dictated by Hi Mcdaniel MD @ 09/29/2024 10:04:41 AM (Electronically Signed)
[2024-09-26] MEDS: CEFAZOLIN 2 GM INJ IVP (08:56)
--- NOTE | 2024-09-26 11:42 | W.ANESCHARGE ---
Anesthesia Charges Start Date/Time Anesthesia Start Date: 09/26/24 Anesthesia Start Time: 08:34 Stop Date/Time Anesthesia Stop Date: 09/26/24 Anesthesia Stop Time: 11:40
== END 2024-09-26 13:08 | disposition home or self-care (01) ==
LOC: OR 07:08
PROVIDERS: PCP Nurse Practitioner Family; Visit Provider Orthopaedic Surgery
PROC: (CPT 27822; principal; 2024-09-26 08:30)
DX: S82.851A Displaced trimalleolar fracture of right lower leg, initial encounter for closed fracture (principal); G89.18 Other acute postprocedural pain; G47.30 Sleep apnea, unspecified; E78.5 Hyperlipidemia, unspecified; F32.A Depression, unspecified; F41.9 Anxiety disorder, unspecified
CPT/HCPCS: 27822; 01480; 64445; 64447; 73610; 76942; A4580; C1713; J0665; J0690; J1100; J1885; J2250; J2405; J2704; J3010

== ENCOUNTER 2025-06-25 12:47 | Outpatient (CLI) | payer OTHER, SELFPAY ==
--- NOTE | 2025-06-25 13:00 | CRLHL7_ITS ---
For Patients: As a result of the Century Cures Act, medical imaging exams and procedure reports are released immediately into your electronic medical record. You may view this report before your referring provider. If you have questions, please contact your health care provider. XR DXA BONE MINERAL DENSITY (BMD) Current height (in): 64.0. Weight (lb): 174.0. Menopause age: 44. Ethnicity: White. Reason for exam: Screening for osteoporosis. 1. Have you had a previous hip or vertebral fracture? No. 2. Have you had any fractures during your adult life which did not result from significant trauma (e.g., auto accident)? No. 3. Did either of your parents have a hip fracture? No. 4. Do you smoke? No. 5. Have you ever taken Glucocorticoids? No. 6. Do you have rheumatoid arthritis? No. 7. Do you have secondary osteoporosis? No. 8. Do you drink 3 or more alcoholic drinks per day? No. 9. Are you being treated for osteoporosis? No. 10. Have you ever taken any of the following medications: Actonel, Evista, Fosamax, Miacalcin, Reclast, Boniva, Forteo, HRT (i.e. estrogen/hormone therapy), Protelos, Prolia, Vitamin D, Calcium, other ??? please specify. ANSWER: Yes, vitamin D, calcium. 11. Do you have any of the following medical conditions: Anorexia or bulimia, asthma or emphysema, end stage renal disease, hyperparathyroidism, any seizure disorders, cancer, inflammatory bowel diseases, hysterectomy, other ??? please specify. ANSWER: No. 12. What was your maximum height (inches)? 64. 13. Do you perform weight bearing exercise regularly? Yes. 14. Do you regularly consume dairy products? No. 15. Do you drink caffeinated beverages? Yes. 16. At what age did your period start? 15. 17. Are you premenopausal? No. 18. How many full-term pregnancies have you had? 3. 19. Have you ever missed your period for more than 6 months in a row (not including or menopause)? No. TECHNIQUE: Bone mineral density study was performed using the [employer]. FINDINGS: The results of the study expressed as bone mineral density (BMD) are as follows: Lumbar spine L1 to L3: BMD: 0.994 g/cm2. T-score: -0.2. Z-score: 1.7 Neck Left: BMD: 0.809 g/cm2. T-score: -0.4. Z-score: 1.3 Right: BMD: 0.804 g/cm2. T-score: -0.4. Z-score: 1.3 Total Left: BMD: 0.955 g/cm2. T-score: 0.1. Z-score: 1.5 Right: BMD: 0.988 g/cm2. T-score: 0.4. Z-score: 1.8 IMPRESSION: Normal bone density. COMPARISON: Compared with scan of 04/19/2022, the bone mineral density has decreased by 2.1 percent at the spine and increased by 7.7 percent at the hip. Hi Mcdaniel M.D. Diagnostic Radiologist [email or web address] Transcribed: 3:55 pm DW/Dictated by: Hi Mcdaniel MD @ 06/25/2025 3:35:00 PM (Electronically Signed)
== END 2025-06-25 12:48 | disposition home or self-care (01) ==
LOC: RAD 12:48
PROVIDERS: PCP Nurse Practitioner Family; Visit Provider Nurse Practitioner Family
DX: Z13.820 Encounter for screening for osteoporosis (principal)
CPT/HCPCS: 77080

== ENCOUNTER 2025-06-26 10:53 | Outpatient (CLI) | payer OTHER, SELFPAY | END 2025-06-26 10:54 | disposition home or self-care (01) | PROVIDERS: PCP Nurse Practitioner Family; Visit Provider Nurse Practitioner Family | DX: Z00.00 Encounter for general adult medical examination without abnormal findings (principal); E78.5 Hyperlipidemia, unspecified | CPT/HCPCS: 80053; 80061; 85025 ==